=== PATIENT | female | born 1950 | race Two or more races ===

== ENCOUNTER → 2016-04-30 | Outpatient (CLI) | payer BC, MEDICARE, OTHER ==
[2016-04-30 08:54] LABS: ABSOLUTE EOSINOPHILS # (AUTO) 0.2 10^3/uL (0.0-0.6); ABSOLUTE LYMPHOCYTES (AUTO) 1.8 10^3/uL (0.5-4.7); ABSOLUTE MONOCYTES (AUTO) 0.7 10^3/uL (0.1-1.4); ABSOLUTE NEUT (AUTO) 5.2 10^3/uL (1.7-8.2); BASOPHILS % (AUTO) 0.6 % (0-2); HEMATOCRIT 41.2 % (36.0-47.0); HEMOGLOBIN 13.9 g/dL (12.0-15.5); HGB HCT DIFFERENCE 0.5; LYMPHOCYTES % (AUTO) 22.7 % (13-45); MEAN CORPUSCULAR HGB CONC 33.7 g/dL (32.0-36.0); MEAN CORPUSCULAR VOLUME 95 fl (80-97); MONOCYTES % (AUTO) 8.4 % (3-13); RED BLOOD COUNT 4.33 10^6/uL (3.72-5.28); RED CELL DISTRIBUTION WIDTH 14.4 % (11.5-14.0); SEGMENTED NEUTROPHILS % (AUTO) 66.3 % (42-78); WHITE BLOOD COUNT 7.8 10^3/uL (4.0-10.5)
[2016-04-30 09:23] LABS: ALANINE AMINOTRANSFERASE 44 U/L (9-52); ALBUMIN 4.9 g/dL (3.5-5.0); ALKALINE PHOSPHATASE 88 U/L (38-126); ANION GAP 11 (5-19); ASPARTATE AMINO TRANSFERASE 35 U/L (14-36); BILIRUBIN,TOTAL 0.6 mg/dL (0.2-1.3); BLOOD UREA NITROGEN 18 mg/dL (7-20); CALCIUM 10.4 mg/dL (8.4-10.2); CARBON DIOXIDE 30 mmol/L (22-30); CHLORIDE 103 mmol/L (98-107); CHOLESTEROL 176.77 mg/dL (0-200); CREATININE RESULT 0.68 mg/dL (0.52-1.25); Direct HDL 64 mg/dL (>40); GLUCOSE 138 mg/dL (75-110); POTASSIUM 5.1 mmol/L (3.6-5.0); TOTAL PROTEIN 7.6 g/dL (6.3-8.2); TRIGLYCERIDES 140 mg/dL (<150)
[2016-04-30 09:34] LABS: DIRECT LDL 99 mg/dL (<100)
== END ==
LOC: OD 07:58
PROVIDERS: ATTEND Family Medicine
DX: E11.9 Type 2 diabetes mellitus without complications (principal); E78.5 Hyperlipidemia, unspecified; E55.9 Vitamin D deficiency, unspecified; Z79.82 Long term (current) use of aspirin; Z79.899 Other long term (current) drug therapy
CPT/HCPCS: 36415; 80048; 80061; 80076; 82306; 83036; 84443; 85025

== ENCOUNTER → 2016-10-30 | Outpatient (CLI) | payer BC, MEDICARE, OTHER ==
[2016-10-30 10:20] LABS: ALANINE AMINOTRANSFERASE 59 U/L (9-52); ALBUMIN 4.4 g/dL (3.5-5.0); ALKALINE PHOSPHATASE 89 U/L (38-126); ANION GAP 9 (5-19); ASPARTATE AMINO TRANSFERASE 45 U/L (14-36); BILIRUBIN,DIRECT 0.4 mg/dL (0.0-0.4); BILIRUBIN,TOTAL 0.5 mg/dL (0.2-1.3); BLOOD UREA NITROGEN 20 mg/dL (7-20); CALCIUM 9.7 mg/dL (8.4-10.2); CARBON DIOXIDE 28 mmol/L (22-30); CHLORIDE 105 mmol/L (98-107); CHOLESTEROL 145.72 mg/dL (0-200); CREATININE RESULT 0.72 mg/dL (0.52-1.25); Direct HDL 57 mg/dL (>40); GLUCOSE 135 mg/dL (75-110); POTASSIUM 5.4 mmol/L (3.6-5.0); SODIUM 142.3 mmol/L (137-145); TOTAL PROTEIN 7.4 g/dL (6.3-8.2); TRIGLYCERIDES 140 mg/dL (<150)
[2016-10-30 10:31] LABS: DIRECT LDL 67 mg/dL (<100)
[2016-10-31 11:39] LABS: CREATININE URINE 182.7 mg/dL (Not Estab.); MICROALBUMIN URINE 8.6 ug/mL (Not Estab.)
== END ==
LOC: OD 08:07
PROVIDERS: ATTEND Family Medicine
DX: E78.5 Hyperlipidemia, unspecified (principal); E11.9 Type 2 diabetes mellitus without complications; Z79.899 Other long term (current) drug therapy
CPT/HCPCS: 36415; 80053; 80061; 82043; 82570; 83036

== ENCOUNTER 2017-05-06 18:22 | Emergency (ER) | payer BC, MEDICARE, OTHER ==
--- NOTE | 2017-05-06 18:58 | ER Document Report ---
ED Medical Screen (RME) - General Chief Complaint: Abnormal Lab Results Stated Complaint: ABNORMAL LABS TRAVEL OUTSIDE OF THE [place] IN LAST 30 DAYS: No - HPI Notes: 05/06/17 18:52 Patient is a 67-year-old female who is referred to the ED by her PCM, Dr. Hardwick , complaining of nasal congestion/discharge, body ache, intermittent fever, dry nonproductive cough 2 days. Patient states that she had blood work performed by her PCM this morning and showed elevated LFTs. Patient does have a history of fatty liver, hypertension, hypercholesterolemia, and diabetes. Her PCM would like her to have fluids as well as a recheck of her labs. Patient states that she did have some abdominal pain on Friday, but that has since resolved. Patient states she is eating and drinking without any difficulties, but does have a decreased p.o. intake. She is urinating normally and having normal bowel movements. She denies any drug allergies. Patient states that she has soreness on her sides when she coughs only. Denies any headache, neck pain, sore throat, chest pain, palpitations, syncope, shortness of breath, wheeze, dyspnea, abdominal pain, nausea/vomiting/diarrhea, urinary retention, dysuria, hematuria, or rash. I have treated and performed a rapid initial assessment of this patient. A comprehensive ED assessment and evaluation of the patient, analysis of test results and completion of medical decision making process will be conducted by additional ED providers. PHYSICAL EXAMINATION: GENERAL: Well-appearing, well-nourished and in no acute distress. A&Ox4. Answers questions appropriately. LUNGS: Breath sounds clear to auscultation bilaterally and equal. No wheezes rales or rhonchi. HEART: pulse 116 approx, regular rhythm without murmurs, rubs, gallops. NEUROLOGICAL: Normal speech, normal gait. PSYCH: Normal mood, normal affect. - Related Data Allergies/Adverse Reactions: No Known Allergies Allergy (Verified 05/06/17 18:35) Past Medical History - Social History Chew tobacco use (# tins/day): No Frequency of alcohol use: None Drug Abuse: None Family history: Reviewed & Not Pertinent - Past Medical History Cardiac Medical History: Reports: Hx Hypercholesterolemia, Hx Hypertension Endocrine Medical History: Reports: Hx Diabetes Mellitus Type 2 Renal/ Medical History: Denies: Hx Peritoneal Dialysis Past Surgical History: Reports: Hx Cardiac Catheterization, Hx Cholecystectomy, Hx Orthopedic Surgery - right foot, hammer toe Physical Exam - Vital signs Vitals: Temp Pulse Resp BP Pulse Ox 98.6 F 116 H 20 157/90 H 97 05/06/17 18:30 05/06/17 18:30 05/06/17 18:30 05/06/17 18:30 05/06/17 18:30 Course - Vital Signs Vital signs: Temp Pulse Resp BP Pulse Ox 98.6 F 116 H 20 157/90 H 97 05/06/17 18:30 05/06/17 18:30 05/06/17 18:30 05/06/17 18:30 05/06/17 18:30
[2017-05-06 20:08] LABS: ABSOLUTE LYMPHOCYTES (AUTO) 0.5 10^3/uL (0.5-4.7); ABSOLUTE MONOCYTES (AUTO) 0.6 10^3/uL (0.1-1.4); ABSOLUTE NEUT (AUTO) 5.9 10^3/uL (1.7-8.2); BASOPHILS % (AUTO) 0.5 % (0-2); EOSINOPHILS % (AUTO) 0.7 % (0-6); HEMATOCRIT 37.8 % (36.0-47.0); HEMOGLOBIN 12.7 g/dL (12.0-15.5); MEAN CORPUSCULAR HEMOGLOBIN 31.4 pg (27.0-33.4); MEAN CORPUSCULAR HGB CONC 33.5 g/dL (32.0-36.0); MEAN CORPUSCULAR VOLUME 94 fl (80-97); MONOCYTES % (AUTO) 8.9 % (3-13); PLATELET COUNT 307 10^3/uL (150-450); RED BLOOD COUNT 4.03 10^6/uL (3.72-5.28); RED CELL DISTRIBUTION WIDTH 13.6 % (11.5-14.0); SEGMENTED NEUTROPHILS % (AUTO) 82.9 % (42-78); TOTAL CELLS COUNTED % (AUTO) 100 %; WHITE BLOOD COUNT 7.1 10^3/uL (4.0-10.5)
[2017-05-06 20:19] LABS: APPEARANCE,URINE SLIGHTLY-CLOUDY; BILIRUBIN,URINE NEGATIVE (NEGATIVE); COLOR,URINE YELLOW; GLUCOSE, URINE NEGATIVE (NEGATIVE); KETONES,URINE TRACE mg/dL (NEGATIVE); LEUKOCYTE ESTERASE,URINE SMALL (NEGATIVE); NITRITE,URINE NEGATIVE (NEGATIVE); PROTEIN,URINE NEGATIVE (NEGATIVE); URINE SPECIFIC GRAVITY 1.018; UROBILINOGEN,URINE NEGATIVE mg/dL (<2.0)
--- NOTE | 2017-05-06 20:35 | ER Document Report ---
ED General - General Chief Complaint: Abnormal Lab Results Stated Complaint: ABNORMAL LABS Time Seen by Provider: 05/06/17 18:59 Notes: The patient is a 67-year-old female, past medical history of fatty liver disease , presents from her primary care physician's office after her LFTs were found to be elevated. Patient denies abdominal pain, fevers, nausea, vomiting, chest pain, shortness of breath, urinary symptoms, recent travel, new medications, statin use, diarrhea or constipation. TRAVEL OUTSIDE OF THE [place] IN LAST 30 DAYS: No - Related Data Allergies/Adverse Reactions: No Known Allergies Allergy (Verified 05/06/17 18:35) Past Medical History - General Information source: Patient - Social History Smoking Status: Never Smoker Chew tobacco use (# tins/day): No Frequency of alcohol use: None Drug Abuse: None Family History: CVA - Father 80 years old Patient has suicidal ideation: No Patient has homicidal ideation: No - Past Medical History Cardiac Medical History: Reports: Hx Hypercholesterolemia, Hx Hypertension Endocrine Medical History: Reports: Hx Diabetes Mellitus Type 2 Renal/ Medical History: Denies: Hx Peritoneal Dialysis Past Surgical History: Reports: Hx Cardiac Catheterization, Hx Cholecystectomy, Hx Orthopedic Surgery - right foot, hammer toe - Immunizations Hx Pneumococcal Vaccination: 03/24/07 Review of Systems - Review of Systems Notes: REVIEW OF SYSTEMS: CONSTITUTIONAL: -fevers, -chills EENT: -eye pain, -difficulty swallowing, -nasal congestion CARDIOVASCULAR: -chest pain, -syncope. RESPIRATORY: -cough, -SOB GASTROINTESTINAL: -abdominal pain, -nausea, -vomiting, -diarrhea GENITOURINARY: -dysuria, -hematuria MUSCULOSKELETAL: -back pain, -neck pain SKIN: -rash or skin lesions. HEMATOLOGIC: -easy bruising or bleeding. LYMPHATIC: -swollen, enlarged glands. NEUROLOGICAL: -altered mental status or loss of consciousness, -headache, - neurologic symptoms PSYCHIATRIC: -anxiety, -depression. ALL OTHER SYSTEMS REVIEWED AND NEGATIVE. Physical Exam - Vital signs Vitals: Temp Pulse Resp BP Pulse Ox 98.6 F 116 H 20 157/90 H 97 05/06/17 18:30 05/06/17 18:30 05/06/17 18:30 05/06/17 18:30 05/06/17 18:30 - Notes Notes: PHYSICAL EXAMINATION: GENERAL: Well-appearing, well-nourished and in no acute distress. HEAD: Atraumatic, normocephalic. EYES: Pupils equal round and reactive to light, extraocular movements intact, sclera anicteric, conjunctiva are normal. ENT: nares patent, oropharynx clear without exudates. Moist mucous membranes. NECK: Normal range of motion, supple without lymphadenopathy LUNGS: Breath sounds clear to auscultation bilaterally and equal. No wheezes rales or rhonchi. HEART: Tachycardia, regular rhythm. ABDOMEN: Soft, nontender, normoactive bowel sounds. No guarding, no rebound. No masses appreciated. EXTREMITIES: Normal range of motion, no pitting or edema. No cyanosis. NEUROLOGICAL: Cranial nerves grossly intact. Normal speech, normal gait. Normal sensory and motor exams. PSYCH: Normal mood, normal affect. SKIN: Warm, Dry, normal turgor, no rashes or lesions noted. Course - Re-evaluation Re-evalutation: Ultrasound obtained due to elevated LFTs, which shows evidence of multiple hepatic lesions with concern for metastatic cancer. CTA ordered due to tachycardia, but no evidence of PE or primary lung cancer. Unable to obtain CT abdomen pelvis for 24 hours due to contrast. Pt had a colonoscopy last year, mammogram in the past year and denies any vaginal bleeding or weight loss. Patient appears well and is in no distress. She remains mildly tachycardic and suspect that it is from her underlying malignancy. No signs of infection or PEs. Instructed her that she must follow-up with the oncologist this week for further evaluation and treatment. Given very strict return precautions and she understands. 05/07/17 00:[address] Curtis and he said to have patient call his office in the morning to be seen this week. - Vital Signs Vital signs: Temp Pulse Resp BP Pulse Ox 98.6 F 116 H 20 157/90 H 97 05/06/17 18:30 05/06/17 18:30 05/06/17 18:30 05/06/17 18:30 05/06/17 18:30 - Laboratory Result Diagrams: 05/06/17 19:50 05/06/17 20:25 Laboratory results interpreted by me: 05/06/17 05/06/17 05/06/17 19:10 19:50 20:25 Seg Neutrophils % 82.9 H Lymphocytes % 7.0 L Sodium 136.2 L Chloride 97 L Carbon Dioxide 31 H Glucose 148 H AST 349 H ALT 154 H Alkaline Phosphatase 313 H Urine Ketones TRACE H Ur Leukocyte Esterase SMALL H Urine Ascorbic Acid 40 H - Diagnostic Test Radiology reviewed: Image reviewed, Reports reviewed Radiology results interpreted by me: KULWINDER US: Multiple masses in the liver most suspicious for metastatic disease. CTA Chest: 1. Numerous hepatic lesions consistent with clinical history of metastasis. 2. No acute cardiopulmonary findings. No pulmonary embolus. Discharge - Discharge Clinical Impression: Lesion of liver, Elevated LFTs Condition: Stable Disposition: HOME, SELF-CARE Additional Instructions: Your ultrasound shows evidence of multiple liver lesions with concern for metastatic cancer. At this time, it is unclear where your primary cancer is from. You must follow-up with the oncologist tomorrow for further evaluation and treatment. Return to the ER if you have any worsening symptoms or any other concerns. Forms: Elevated Blood Pressure Referrals: ARDEN BARRAZA MD [Primary Care Provider] - Follow up as needed WALE CURTIS MD [ACTIVE STAFF] - Follow up as needed
[2017-05-06] MEDS: NORMAL SALINE 1000 ML 1,000 ML IV PRN ×2 (20:36→23:59)
[2017-05-06 20:58] LABS: ALANINE AMINOTRANSFERASE 154 U/L (9-52); ALBUMIN 4.2 g/dL (3.5-5.0); ALKALINE PHOSPHATASE 313 U/L (38-126); ANION GAP 8 (5-19); ASPARTATE AMINO TRANSFERASE 349 U/L (14-36); BILIRUBIN,DIRECT 0.2 mg/dL (0.0-0.4); BILIRUBIN,TOTAL 0.3 mg/dL (0.2-1.3); BLOOD UREA NITROGEN 14 mg/dL (7-20); CALCIUM 9.4 mg/dL (8.4-10.2); CARBON DIOXIDE 31 mmol/L (22-30); CHLORIDE 97 mmol/L (98-107); GLUCOSE 148 mg/dL (75-110); SODIUM 136.2 mmol/L (137-145); TOTAL PROTEIN 6.3 g/dL (6.3-8.2)
--- NOTE | 2017-05-06 21:42 | RADIOLOGY REPORT (SQ) ---
EXAM DESCRIPTION: U/S ABDOMEN LIMITED W/O DOP COMPLETED DATE/TIME: 05/06/2017 9:30 pm REASON FOR STUDY: elevated LFTs COMPARISON: 2013 TECHNIQUE: Dynamic and static grayscale images acquired of the abdomen and recorded on PACS. Additio nal selected color Doppler and spectral images recorded. LIMITATIONS: None. FINDINGS: PANCREAS: Poorly seen LIVER: There are multiple heterogeneous masses throughout the liver. LIVER VASCULATURE: Normal directional flow of the main portal vein and hepatic veins. GALLBLADDER: Surgically absent ULTRASOUND-DETECTED DUPONT'S SIGN: Negative. INTRAHEPATIC DUCTS AND COMMON DUCT: Not dilated. INFERIOR VENA CAVA: Normal flow. AORTA: No aneurysm. RIGHT KIDNEY: Normal size. Normal echogenicity. No solid or suspicious masses. No hydronephrosis. No calcifications. PERITONEAL AND RIGHT PLEURAL SPACE: No ascites or effusions. OTHER: No other significant findings. IMPRESSION: Multiple masses in the liver most suspicious for metastatic disease. TECHNICAL DOCUMENTATION: JOB ID: [id number] [employer]- All Rights Reserved
--- NOTE | 2017-05-06 23:25 | RADIOLOGY REPORT (SQ) ---
EXAM DESCRIPTION: CTA CHEST CLINICAL HISTORY: 67 years Female, tachycardia, tachypnea, multiple mets in liver COMPARISON: CR, September 07, 2013. Ultrasound, same day. TECHNIQUE: 100 mL Isovue-370 IV contrast. Multiplanar reformat. This exam was performed according to our departmental dose-optimization program, which includes automated exposure control, adjustment of the mA and/or kV according to patient size and/or use of iterative reconstruction technique. FINDINGS: Innumerable and extensive hepatic lesions partially imaged including a 6.9 cm lesion of the right hepatic lobe may indicate metastasis or malignancy, consistent with concurrent ultrasound. No evidence of pulmonary embolus. No right ventricular strain. Inferior neck, axillae, mediastinum, lungs, airway, lymphatics, heart, vasculature, upper abdomen, and musculoskeleton appear otherwise unremarkable. IMPRESSION: 1. Numerous hepatic lesions consistent with clinical history of metastasis. 2. No acute cardiopulmonary findings. No pulmonary embolus.
[2017-05-07 00:22] VITALS: BP 159/83
== END 2017-05-07 00:34 | disposition home or self-care (01) ==
LOC: ER 18:22
DX: K76.9 Liver disease, unspecified (principal); R00.0 Tachycardia, unspecified; I10 Essential (primary) hypertension; E11.9 Type 2 diabetes mellitus without complications
CPT/HCPCS: 99284; 96360; 96361; 36415; 85025; 80053; 81001; 76705; 71275; J7030

== ENCOUNTER → 2017-05-06 | Outpatient (CLI) | payer BC, MEDICARE, OTHER ==
[2017-05-06 09:27] LABS: ABSOLUTE EOSINOPHILS # (AUTO) 0.1 10^3/uL (0.0-0.6); ABSOLUTE LYMPHOCYTES (AUTO) 0.7 10^3/uL (0.5-4.7); ABSOLUTE MONOCYTES (AUTO) 0.5 10^3/uL (0.1-1.4); ABSOLUTE NEUT (AUTO) 5.8 10^3/uL (1.7-8.2); BASOPHILS % (AUTO) 0.4 % (0-2); EOSINOPHILS % (AUTO) 1.4 % (0-6); HEMATOCRIT 36.3 % (36.0-47.0); HEMOGLOBIN 12.1 g/dL (12.0-15.5); LYMPHOCYTES % (AUTO) 9.8 % (13-45); MEAN CORPUSCULAR HEMOGLOBIN 31.2 pg (27.0-33.4); MEAN CORPUSCULAR HGB CONC 33.3 g/dL (32.0-36.0); MEAN CORPUSCULAR VOLUME 94 fl (80-97); MONOCYTES % (AUTO) 7.2 % (3-13); PLATELET COUNT 317 10^3/uL (150-450); RED BLOOD COUNT 3.88 10^6/uL (3.72-5.28); RED CELL DISTRIBUTION WIDTH 13.7 % (11.5-14.0); SEGMENTED NEUTROPHILS % (AUTO) 81.2 % (42-78); TOTAL CELLS COUNTED % (AUTO) 100 %; WHITE BLOOD COUNT 7.1 10^3/uL (4.0-10.5)
[2017-05-06 10:02] LABS: ALANINE AMINOTRANSFERASE 158 U/L (9-52); ALBUMIN 4.3 g/dL (3.5-5.0); ALKALINE PHOSPHATASE 335 U/L (38-126); ANION GAP 12 (5-19); ASPARTATE AMINO TRANSFERASE 355 U/L (14-36); BILIRUBIN,DIRECT 0.2 mg/dL (0.0-0.4); BILIRUBIN,TOTAL 0.3 mg/dL (0.2-1.3); BLOOD UREA NITROGEN 15 mg/dL (7-20); CALCIUM 9.7 mg/dL (8.4-10.2); CARBON DIOXIDE 29 mmol/L (22-30); CHLORIDE 99 mmol/L (98-107); CHOLESTEROL 117.63 mg/dL (0-200); GLUCOSE 179 mg/dL (75-110); POTASSIUM 4.5 mmol/L (3.6-5.0); SODIUM 140.1 mmol/L (137-145); TOTAL PROTEIN 6.6 g/dL (6.3-8.2); TRIGLYCERIDES 83 mg/dL (<150)
[2017-05-06 10:13] LABS: DIRECT LDL 51 mg/dL (<100)
[2017-05-07 10:38] LABS: CREATININE URINE 103.8 mg/dL (Not Estab.); MICROALBUMIN URINE 28.5 ug/mL (Not Estab.)
== END ==
LOC: OD 08:19
PROVIDERS: ATTEND Family Medicine
DX: E55.9 Vitamin D deficiency, unspecified (principal); E11.9 Type 2 diabetes mellitus without complications; E78.5 Hyperlipidemia, unspecified; Z79.899 Other long term (current) drug therapy
CPT/HCPCS: 36415; 80053; 80061; 82043; 82306; 82570; 83036; 84443; 85025

== ENCOUNTER → 2017-05-12 | Outpatient (CLI) | payer BC, MEDICARE, OTHER ==
--- NOTE | 2017-05-12 19:21 | RADIOLOGY REPORT (SQ) ---
EXAM DESCRIPTION: CT CHEST WITH; CT ABD/PELVIS WITH IV ORAL COMPLETED DATE/TIME: 05/12/2017 3:50 pm REASON FOR STUDY: LIVER LESION, ABDOMINAL PAIN, CHEST PAIN R93.2 ABNORMAL FINDINGS ON DX IMAGING OF LIVER AND BILIARY T COMPARISON: CT angio chest 05/06/2017 CONTRAST TYPE AND DOSE: contrast/concentration: Isovue 370.00 mg/ml; Total Contrast Delivered: 79.0 ml; Total Saline Delivered: 68.0 ml RENAL FUNCTION: Creatinine 0.72 TECHNIQUE: CT scan of the chest performed using helical scanning technique with dynamic intravenous contrast injection. Images reviewed with lung, soft tissue and bone windows. Reconstructed coronal a nd sagittal MPR images reviewed. All images stored on PACS. CT scan of the abdomen and pelvis performed with intravenous and with oral contrastusing helical scan little technique with dynamic intravenous contrast injection. Images reviewed with lung, soft tissue a nd bone windows. Reconstructed coronal and sagittal MPR images reviewed. Delayed images for evaluat ion of the urinary system also acquired and evaluated. All images stored on PACS. All CT scanners at this facility use dose modulation, iterative reconstruction, and/or weight based d osing when appropriate to reduce radiation dose to as low as reasonably achievable (ALARA). [facility]: Dose Right [facility]: CareDose [facility]: Dose Right [facility]: Teradose 4D [facility]: [employer] RADIATION DOSE: CT Rad equipment meets quality standard of care and radiation dose reduction techniq ues were employed. CTDIvol: 6.4 - 7.9 mGy. DLP: 1046 mGy-cm. . LIMITATIONS: None. FINDINGS: CHEST: LUNGS AND PLEURA: No opacities, nodules, masses. No pneumothorax. No effusions. HILAR AND MEDIASTINAL STRUCTURES: No identified masses or abnormal nodes. HEART AND VASCULAR STRUCTURES: No aneurysm or dissection. No central pulmonary emboli. No pericardi al effusion. HARDWARE: None. THYROID AND OTHER SOFT TISSUES: No masses. No adenopathy. BONES: No significant finding. OTHER: No other significant finding. ABDOMEN AND PELVIS: LIVER: Too numerous to count metastatic lesions throughout the liver. Mild hepatomegaly. No biliary ductal dilatation. No oral vein or hepatic vein thrombosis SPLEEN: Normal size. No focal lesions. PANCREAS: 3.8 x 3.8 cm mass in the pancreatic body with atrophy of the pancreatic tail. GALLBLADDER: Surgically absent. ADRENAL GLANDS: No significant masses or asymmetry. RIGHT KIDNEY AND URETER: No solid masses. No significant calcification. No hydronephrosis or hydroure ter. LEFT KIDNEY AND URETER: No solid masses. No significant calcification. No hydronephrosis or hydrouret er. AORTA AND VESSELS: No aneurysm. No dissection. Renal arteries, SMA, celiac without stenosis. RETROPERITONEUM: No retroperitoneal adenopathy, hemorrhage or masses. BOWEL AND PERITONEAL CAVITY: No masses or inflammatory changes. No free fluid or peritoneal masses. APPENDIX: Not identified. No right lower quadrant inflammatory change ABDOMINAL WALL: No masses. No hernias. PELVIS: No mass or free fluid. Normal bladder. Normal size female pelvic organs BONES: No bony metastatic disease. Degenerative disc changes sat L4-5. OTHER: No other significant finding. IMPRESSION: 3.8 x 3.8 cm pancreatic mass with liver metastatic lesions. Post cholecystectomy. Unremarkable CT chest. TECHNICAL DOCUMENTATION: JOB ID: [id number] Quality ID # [id number]: Final reports with documentation of one or more dose reduction techniques (e.g., Au tomated exposure control, adjustment of the mA and/or kV according to patient size, use of iterative reconstruction technique) 2010 [employer]- All Rights Reserved
== END ==
LOC: RAD 14:47
PROVIDERS: ATTEND Internal Medicine Hematology & Oncology
DX: R93.2 Abnormal findings on diagnostic imaging of liver and biliary tract (principal); R10.9 Unspecified abdominal pain; R07.9 Chest pain, unspecified
CPT/HCPCS: 71260; 74177

== ENCOUNTER 2017-06-11 08:26 | Day surgery (SDC) | payer BC, MEDICARE, OTHER ==
[2017-06-09 12:06] LABS: HEMATOCRIT 30.6 % (36.0-47.0); HEMOGLOBIN 10.1 g/dL (12.0-15.5); MEAN CORPUSCULAR HEMOGLOBIN 30.5 pg (27.0-33.4); MEAN CORPUSCULAR VOLUME 92 fl (80-97); PLATELET COUNT 437 10^3/uL (150-450); RED BLOOD COUNT 3.32 10^6/uL (3.72-5.28); RED CELL DISTRIBUTION WIDTH 14.6 % (11.5-14.0)
[2017-06-09 12:34] LABS: ANION GAP 11 (5-19); BLOOD UREA NITROGEN 14 mg/dL (7-20); CALCIUM 9.4 mg/dL (8.4-10.2); CARBON DIOXIDE 29 mmol/L (22-30); CHLORIDE 93 mmol/L (98-107); GLUCOSE 96 mg/dL (75-110); SODIUM 132.5 mmol/L (137-145)
--- NOTE | 2017-06-09 23:58 | EKG REPORT ---
SEVERITY:- ABNORMAL ECG - SINUS RHYTHM LEFT VENTRICULAR HYPERTROPHY : Confirmed by: Say Beard 09-Jun-2017 23:57:24
[~2017-06-11 08:26] MED LIST: ACETAMINOPHEN 325 MG TABLET PO PRN; CEFAZOLIN 1 GM/D5W RTU 1 GM/50 ML RTUPB IV PRN; LACTATED RINGERS 1000 ML IV PRN; LIDOCAINE 0.5% INJ-PF (5 MG/ML) 50 ML SDV SUBCUT PRN
[2017-06-11] MEDS ORDERED: LIDOCAINE 1%/EPINEPHRINE INJ 20 ML VIAL ONE (08:50)
[2017-06-11] MEDS ORDERED: PROPOFOL INJ 200 MG/20 ML VIAL IV ONE (09:44)
[2017-06-11] MEDS ORDERED: FENTANYL CITRATE INJ/PF 100 MCG/2 ML AMPUL ONE (09:44)
[2017-06-11] MEDS ORDERED: ACETAMINOPHEN 100 ML IV ONE (09:44)
[2017-06-11] MEDS ORDERED: KETAMINE HCL INJ 500 MG/10 ML VIAL ONE (09:44)
[2017-06-11] MEDS ORDERED: MIDAZOLAM 2 MG/2 ML INJ ONE (09:44)
[2017-06-11] MEDS ORDERED: PROMETHAZINE HCL INJ 25 MG/1 ML VIAL IV PRN ×2 (10:13)
[2017-06-11] MEDS ORDERED: ONDANSETRON HCL INJ/PF 4 MG/2 ML SDV IV PRN ×2 (10:13→10:55)
[2017-06-11] MEDS ORDERED: MEPERIDINE HCL/PF INJ 25 MG/1 ML DISP.SYRIN IV PRN (10:13)
[2017-06-11] MEDS ORDERED: DIPHENHYDRAMINE HCL 50 MG/ML VIAL IV PRN (10:13)
[2017-06-11] MEDS ORDERED: FENTANYL CITRATE INJ/PF 100 MCG/2 ML AMPUL IV PRN ×3 (10:13)
[2017-06-11] MEDS ORDERED: OXYCODONE-ACETAMINOPHEN 5-325 MG TABLET PO PRN (10:55)
--- NOTE | 2017-06-11 10:55 | Discharge Summary ---
Discharge Summary (SDC) - Discharge Final Diagnosis: Pancreatic cancer Date of Surgery: 06/11/17 Discharge Date: 06/11/17 Condition: Stable Treatment or Instructions: Wound Care: You may get incisions wet in 48 hours. Leave steri strips intact until they fall away on their own. Do not scrub area. Pat dry and cover if needed. Pain Management: Toradol 10 mg one pill by mouth every six hours as needed for pain. Follow Up: You may follow up with [facility] in 7-10 days. Call clinic sooner with questions/concerns or if you experience unusual bleeding, swelling of incision site/neck, difficult breathing, foul-smelling drainage. [facility]: [phone] Prescriptions: Ketorolac Tromethamine [Toradol 10 mg Tablet] 10 mg PO Q6HP PRN #20 tablet PRN Reason: Referrals: ARDEN BARRAZA MD [Primary Care Provider] - Discharge Diet: As Tolerated Discharge Activity: Activity As Tolerated Report the Following to Your Physician Immediately: Fever over 101 Degrees, Unusual Bleeding, Redness
--- NOTE | 2017-06-11 11:01 | Operative Report ---
Operative Report DATE OF SURGERY: 06/11/17 PREOPERATIVE DIAGNOSIS: Metastatic pancreatic carcinoma POSTOPERATIVE DIAGNOSIS: Same OPERATION: 1. Focused ultrasound of the right neck. 2. Ultrasound directed insertion of single lumen right internal jugular vein portacatheter. 3. Revision of intraoperative fluoroscopy SURGEON: KINSEY VENTURA 1ST HUMAN RESOURCE ADVISOR: BONITA MOISE ANESTHESIA: LMAC TISSUE REMOVED OR ALTERED: None COMPLICATIONS: None ESTIMATED BLOOD LOSS: Scant INTRAOPERATIVE FINDINGS: See below PROCEDURE: Patient was taken to the main operating room where LMAC anesthesia was induced. Arms were tucked and neck externally rotated to the left side. The right chest and neck were prepped and draped sterile fashion. Surgical plan surgical timeout were conducted. Using real-time ultrasonography as a guide, the right neck was anesthetized with 1% plain lidocaine. A ludin was made in skin with 11 blade, micro wire and needle threaded into the right internal jugular vein. Suitable site for placement of port was chosen in the right subclavian position. Skin was anesthetized with lidocaine, 3-1/2 cm incision made with a # 10 blade, and a subcutaneous pocket developed large enough to accommodate a single-chamber Lronae-l-Zsps catheter. The catheter was then trimmed to the appropriate length, tunneled between the 2 incisions, attached to the port with the plastic ring and the port tucked into the pocket. Under fluoroscopic guidance, the micro wire was switched over to a conventional 0.030 inch guidewire using the introducer sheath. Then under fluoroscopic guidance, the 9 Bahamian dilator introducer sheath were threaded over the wire, wire and dilator removed leaving the catheter in good position. Trip away sheath was removed uneventfully. Kinking of the catheter at the level of the neck was relieved with hemostat. There was excellent aspiration and flush through the port with heparinized saline. There is no evidence of ectopy. There was no significant bleeding. Wounds closed with 3-0 Vicryl, benzoin and Steri-Strips. Patient tolerated procedure well, taken to recovery room in stable condition. The physician business services assistant, Ms. Conklin, provided assistance during this case by: Assist retracting tissue, instillation of local anesthesia and closure of skin incisions.
--- NOTE | 2017-06-11 13:08 | RADIOLOGY REPORT (SQ) ---
EXAM DESCRIPTION: FLUORO/CV PLACEMENT COMPLETED DATE/TIME: 06/11/2017 11:01 am REASON FOR STUDY: PORTACATH PLCMT RT SIDE ASST WITH FLUORO IN OR C25.9 MALIGNANT NEOPLASM OF PANCRE , UNSPECIFIED R93.3 ABNORMAL FINDINGS ON DX IMAGING OF PRT DIGESTIVE TRACT R74.0 NONSPEC ELEV OF LEVELS OF TRANSAMNS LACTIC ACID DEHY COMPARISON: None. FLUOROSCOPY TIME: 0.1 minute 4 images saved to PACS. TECHNIQUE: Intra-operative images acquired during surgical procedure to evaluate progress. NUMBER OF IMAGES: 4 images LIMITATIONS: None. FINDINGS: Fluoroscopic images were obtained during insertion of a Port-A-Cath. Port-A-Cath is ident ified with its tip at the level of the superior vena cava. Please refer to the surgeon's operative r eport for additional information. IMPRESSION: IMAGE(S) OBTAINED DURING PROCEDURE. COMMENT: Quality ID [id number]: Final reports for procedures using fluoroscopy that document radiation exp osure indices, or exposure time and number of fluorographic images (if radiation exposure indices are not available) Please consult full operative report of the attending physician for description of the procedure. TECHNICAL DOCUMENTATION: JOB ID: [id number] [employer]- All Rights Reserved Reading location - IP/workstation name: [email or web address]
[2017-06-11 13:18] VITALS: BP 105/68
[2017-06-11] MEDS ORDERED: DEXAMETHASONE SOD PHOSPHATE INJ 4 MG/1 ML VIAL ONE (15:46)
[2017-06-11] MEDS ORDERED: LIDOCAINE 2% INJ-PF (20 MG/ML) 2 ML AMPUL ONE (15:46)
[2017-06-11] MEDS ORDERED: GLYCOPYRROLATE INJ 0.4 MG/2 ML VIAL ONE (15:46)
[2017-06-11] MEDS ORDERED: METOCLOPRAMIDE HCL INJ/PF 10 MG/2 ML SDV ONE (15:46)
[2017-06-11] MEDS ORDERED: PHENYLEPHRINE HCL INJ/PF 10 MG/1 ML SDV ONE (15:46)
[2017-06-11] MEDS ORDERED: ONDANSETRON HCL INJ/PF 4 MG/2 ML SDV ONE (15:46)
== END 2017-06-11 12:40 | disposition home or self-care (01) ==
LOC: OROUT 08:26
PROVIDERS: ATTEND Surgery
DX: C25.9 Malignant neoplasm of pancreas, unspecified (principal); R93.3 Abnormal findings on diagnostic imaging of other parts of digestive tract; R74.0 Nonspecific elevation of levels of transaminase and lactic acid dehydrogenase [LDH]; I20.8 Other forms of angina pectoris; I10 Essential (primary) hypertension; E11.9 Type 2 diabetes mellitus without complications; Z79.899 Other long term (current) drug therapy; Z79.82 Long term (current) use of aspirin; Z79.84 Long term (current) use of oral hypoglycemic drugs; Z79.891 Long term (current) use of opiate analgesic; M19.90 Unspecified osteoarthritis, unspecified site
CPT/HCPCS: 36561; 93005; 36415; 82962; 85027; 80048; 77001; 93010; C1752; C1788; J2250; J0690; J1100; J3010; J3490 ×3; J2765; J2370; J2405; J2704; J1642; J0131; 532

== ENCOUNTER 2017-07-27 10:16 | Inpatient (IN) | payer BC, MEDICARE, OTHER ==
[2017-07-27] MEDS ORDERED: MECLIZINE HCL 25 MG TABLET PO ONE (10:39)
--- NOTE | 2017-07-27 10:41 | ER Document Report ---
ED Medical Screen (RME) - General Chief Complaint: Abdominal Pain Stated Complaint: ABDOMINAL PAIN Time Seen by Provider: 07/27/17 10:39 Notes: 67-year-old female patient recently diagnosed with pancreatic cancer. Had her third chemo treatment on Friday. She reports she has mid abdominal pain but it is pretty much unchanged all week. Yesterday she had onset of dizziness, she notes that she gets very dizzy when she goes from laying down to sitting up or standing. She is complaining of being very thirsty and wants some water to drink, she has not been vomiting. She will be given a dose of Antivert now for her vertigo symptoms. I have greeted and performed a rapid initial assessment of this patient. A comprehensive ED assessment and evaluation of the patient, analysis of test results and completion of the medical decision making process will be conducted by additional ED providers. TRAVEL OUTSIDE OF THE [place] IN LAST 30 DAYS: No - Related Data Allergies/Adverse Reactions: No Known Allergies Allergy (Verified 07/27/17 10:36) Past Medical History - Social History Chew tobacco use (# tins/day): No Frequency of alcohol use: None Drug Abuse: None Family history: Reviewed & Not Pertinent - Past Medical History Cardiac Medical History: Reports: Hx Hypercholesterolemia, Hx Hypertension Denies: Hx Coronary Artery Disease, Hx Heart Attack Pulmonary Medical History: Denies: Hx Asthma, Hx Bronchitis, Hx COPD, Hx Pneumonia Neurological Medical History: Denies: Hx Cerebrovascular Accident, Hx Seizures Endocrine Medical History: Reports: Hx Diabetes Mellitus Type 2 Renal/ Medical History: Denies: Hx Peritoneal Dialysis Musculoskeltal Medical History: Reports Hx Arthritis - GENERALIZED Past Surgical History: Reports: Hx Cardiac Catheterization, Hx Cholecystectomy, Hx Orthopedic Surgery - right foot, hammer toe - Immunizations Hx Diphtheria, Pertussis, Tetanus Vaccination: Yes History of Influenza Vaccine for 12/2016 - 05/2017 Season: Yes Influenza Administration Date for 12/2016 - 05/2017 Season: 12/22/16 Physical Exam - Vital signs Vitals: Temp Pulse Resp BP Pulse Ox 98.6 F 115 H 20 131/64 H 96 07/27/17 10:22 07/27/17 10:22 07/27/17 10:22 07/27/17 10:22 07/27/17 10:22 Course - Vital Signs Vital signs: Temp Pulse Resp BP Pulse Ox 98.6 F 115 H 20 131/64 H 96 07/27/17 10:22 07/27/17 10:22 07/27/17 10:22 07/27/17 10:22 07/27/17 10:22
[2017-07-27] MEDS ORDERED: RINGERS SOLUTION,LACTATED 1,000 ML IV ONE (11:22)
--- NOTE | 2017-07-27 11:28 | ER Document Report ---
ED General - General Chief Complaint: Abdominal Pain Stated Complaint: ABDOMINAL PAIN Time Seen by Provider: 07/27/17 10:39 Notes: Patient has 2 complaints, abdominal pain and vertigo. Patient was diagnosed with pancreatic cancer in April of this year, and it has spread into her liver and occupies about 80% of the liver, according to her . She has been receiving chemotherapy approximately every couple of weeks, most recent dose being 2 days ago. Her abdominal pain is diffuse and has remained about the same all this week. She is on morphine ER 30, and morphine IR 15. She has had vomiting yesterday a few times. Has not had any diarrhea. Eating poorly and drinking poorly. Had some nosebleed today. Has had swelling of both lower legs for weeks. Is able to ambulate with a cane. Patient also is complaining of vertigo. She has had episodes of vertigo in the past. This episode been going on since yesterday. It goes and comes. Feels like the room is spinning. She had some headache yesterday but none today. Has not passed out and has no neurologic deficits. has been recording patient's events and says that she had a low-grade fever the last couple of days. No UTI symptoms. TRAVEL OUTSIDE OF THE [place] IN LAST 30 DAYS: No - Related Data Allergies/Adverse Reactions: No Known Allergies Allergy (Verified 07/27/17 10:36) Past Medical History - Social History Smoking Status: Never Smoker Chew tobacco use (# tins/day): No Frequency of alcohol use: None Drug Abuse: None Family History: Reviewed & Not Pertinent, CVA - Father 80 years old Patient has suicidal ideation: No Patient has homicidal ideation: No - Past Medical History Cardiac Medical History: Reports: Hx Hypercholesterolemia, Hx Hypertension Endocrine Medical History: Reports: Hx Diabetes Mellitus Type 2 Malignancy Medical History: Reports: Hx Pancreatic Cancer - See HPI. Musculoskeltal Medical History: Reports Hx Arthritis - GENERALIZED Past Surgical History: Reports: Hx Cardiac Catheterization, Hx Cholecystectomy, Hx Orthopedic Surgery - right foot, hammer toe - Immunizations Hx Diphtheria, Pertussis, Tetanus Vaccination: Yes Hx Pneumococcal Vaccination: 01/22/17 Review of Systems - Review of Systems Notes: REVIEW OF SYSTEMS: CONSTITUTIONAL : Has had low-grade fevers for the past couple of days. Poor appetite and little intake.. EENT: Denies eye, ear, nose or mouth or throat pain or other symptoms. CARDIOVASCULAR: Denies chest pain. RESPIRATORY: Denies cough, chest congestion, or shortness of breath. GASTROINTESTINAL: See HPI. GENITOURINARY: Denies difficulty or painful urinating, urinary frequency, blood in urine. Decreased urine output. MUSCULOSKELETAL: Denies back or neck pain. Denies joint pain or swelling. SKIN: Denies rash or skin lesions. NEUROLOGICAL: See HPI. Denies LOC or altered mental status. Denies headache at this time, but did have a slight headache yesterday. Denies sensory loss or motor deficits. ALL OTHER SYSTEMS REVIEWED AND NEGATIVE. Physical Exam - Vital signs Vitals: Temp Pulse Resp BP Pulse Ox 98.6 F 115 H 20 131/64 H 96 07/27/17 10:22 07/27/17 10:22 07/27/17 10:22 07/27/17 10:22 07/27/17 10:22 Interpretation: Tachycardic - Mild - Notes Notes: PHYSICAL EXAMINATION: GENERAL: in no acute distress. Vital signs all essentially normal except for her heart rate of 115 in triage. She was given Antivert in triage. HEAD: Atraumatic, normocephalic. EYES: Pupils equal round and reactive to light, extraocular movements intact. ENT: oropharynx clear without exudates. Dry mucous membranes. NECK: Normal range of motion, supple. LUNGS: Breath sounds clear and equal bilaterally. HEART: Regular rate and rhythm without murmurs. ABDOMEN: Soft, mild diffuse tenderNESS. No guarding or rebound. No masses. BACK: No tenderness throughout entire back. EXTREMITIES: Normal range of motion without pain. +2-+3 pretibial pitting edema bilaterally. NEUROLOGICAL: Normal speech, normal gait with cane and assistance. Normal sensory, motor, and reflex exams. Awake, alert, and oriented x3. PSYCH: Normal mood, normal affect. Appears depressed SKIN: Warm, dry, no rashes. Course - Re-evaluation Re-evalutation: 07/27/17 14:40 Patient's hemoglobin is 7.8, runs around 8 over the last several weeks and this is not an unusual number for her. Rectal exam guaiac negative. Patient's heart rate 110 220 during my rectal examination. Chest x-ray shows a new right pleural effusion. Spoke with hospitalist who will admit the patient. - Vital Signs Vital signs: Temp Pulse Resp BP Pulse Ox 98.6 F 115 H 20 128/70 H 95 07/27/17 10:22 07/27/17 10:22 07/27/17 13:48 07/27/17 13:49 07/27/17 13:48 - Laboratory Result Diagrams: 07/27/17 12:10 07/27/17 12:10 Laboratory results interpreted by me: 07/27/17 07/27/17 07/27/17 11:35 12:10 12:10 WBC 11.4 H RBC 2.66 L Hgb 7.8 L Hct 23.4 L RDW 18.0 H Seg Neutrophils % 91.7 H Lymphocytes % 7.3 L Monocytes % 0.7 L Absolute Neutrophils 10.5 H Sodium 130.9 L Chloride 93 L Creatinine 0.41 L Glucose 122 H Calcium 8.0 L Total Bilirubin 1.5 H Direct Bilirubin 0.8 H AST 1318 H ALT 63 H Alkaline Phosphatase 587 H NT-Pro-B Natriuret Pep Total Protein 5.1 L Albumin 2.5 L Urine Protein 30 H Urine Blood SMALL H Urine Urobilinogen 2.0 H Ur Leukocyte Esterase TRACE H 07/27/17 12:10 WBC RBC Hgb Hct RDW Seg Neutrophils % Lymphocytes % Monocytes % Absolute Neutrophils Sodium Chloride Creatinine Glucose Calcium Total Bilirubin Direct Bilirubin AST ALT Alkaline Phosphatase NT-Pro-B Natriuret Pep 3190 H Total Protein Albumin Urine Protein Urine Blood Urine Urobilinogen Ur Leukocyte Esterase - Diagnostic Test Radiology results interpreted by me: 07/27/17 14:41 Chest x-ray shows a right pleural effusion. This was not present on the last imaging study, a CT scan of the patient's chest, and April of this year. - EKG Interpretation by Sc EKG shows normal: Sinus rhythm Rate: Tachycardia Rhythm: NSR Discharge - Discharge Clinical Impression: Pancreatic cancer metastasized to liver, Anemia, Tachycardia, Pleural effusion , right, Hyponatremia Condition: Stable Disposition: ADMITTED INPATIENT Admitting Provider: Hospitalist Unit Admitted: Telemetry
[2017-07-27 12:04] LABS: APPEARANCE,URINE SLIGHTLY-CLOUDY; BILIRUBIN,URINE NEGATIVE (NEGATIVE); COLOR,URINE AMBER; GLUCOSE, URINE NEGATIVE (NEGATIVE); KETONES,URINE NEGATIVE (NEGATIVE); LEUKOCYTE ESTERASE,URINE TRACE (NEGATIVE); NITRITE,URINE NEGATIVE (NEGATIVE); PROTEIN,URINE 30 mg/dL (NEGATIVE); URINE SPECIFIC GRAVITY 1.016
[2017-07-27 12:38] LABS: ABSOLUTE LYMPHOCYTES (AUTO) 0.8 10^3/uL (0.5-4.7); ABSOLUTE MONOCYTES (AUTO) 0.1 10^3/uL (0.1-1.4); ABSOLUTE NEUT (AUTO) 10.5 10^3/uL (1.7-8.2); BASOPHILS % (AUTO) 0.3 % (0-2); HEMATOCRIT 23.4 % (36.0-47.0); LYMPHOCYTES % (AUTO) 7.3 % (13-45); MEAN CORPUSCULAR HEMOGLOBIN 29.4 pg (27.0-33.4); MEAN CORPUSCULAR HGB CONC 33.4 g/dL (32.0-36.0); MEAN CORPUSCULAR VOLUME 88 fl (80-97); MONOCYTES % (AUTO) 0.7 % (3-13); PLATELET COUNT 323 10^3/uL (150-450); RED BLOOD COUNT 2.66 10^6/uL (3.72-5.28); SEGMENTED NEUTROPHILS % (AUTO) 91.7 % (42-78); TOTAL CELLS COUNTED % (AUTO) 100 %; WHITE BLOOD COUNT 11.4 10^3/uL (4.0-10.5)
[2017-07-27 12:49] LABS: HEMOGLOBIN 7.8 g/dL (12.0-15.5)
[2017-07-27 12:56] LABS: ALANINE AMINOTRANSFERASE 63 U/L (9-52); ALBUMIN 2.5 g/dL (3.5-5.0); ALKALINE PHOSPHATASE 587 U/L (38-126); ANION GAP 9 (5-19); BILIRUBIN,DIRECT 0.8 mg/dL (0.0-0.4); BILIRUBIN,TOTAL 1.5 mg/dL (0.2-1.3); BLOOD UREA NITROGEN 13 mg/dL (7-20); CARBON DIOXIDE 29 mmol/L (22-30); CHLORIDE 93 mmol/L (98-107); GLUCOSE 122 mg/dL (75-110); LIPASE 46.2 U/L (23-300); POTASSIUM 4.1 mmol/L (3.6-5.0); SODIUM 130.9 mmol/L (137-145); TOTAL PROTEIN 5.1 g/dL (6.3-8.2)
[2017-07-27 13:04] LABS: ASPARTATE AMINO TRANSFERASE 1318 U/L (14-36)
--- NOTE | 2017-07-27 14:04 | RADIOLOGY REPORT (SQ) ---
EXAM DESCRIPTION: CHEST SINGLE VIEW COMPLETED DATE/TIME: 07/27/2017 1:57 pm REASON FOR STUDY: Shortness of breath, portable COMPARISON: Correlation made to CT from 05/12/2017. EXAM PARAMETERS: NUMBER OF VIEWS: One view. TECHNIQUE: Single frontal radiographic view of the chest acquired. RADIATION DOSE: NA LIMITATIONS: None. FINDINGS: LUNGS AND PLEURA: Elevation right hemidiaphragm with associated airspace disease. Possibl e pleural effusion. Left lung is grossly clear. No pneumothorax. MEDIASTINUM AND HILAR STRUCTURES: No masses. Contour normal. HEART AND VASCULAR STRUCTURES: Heart stable in size. Normal vasculature. BONES: No acute findings. HARDWARE: Right-sided Port-A-Cath in place OTHER: No other significant finding. IMPRESSION: NEW ELEVATION OF THE RIGHT HEMIDIAPHRAGM WITH ASSOCIATED AIRSPACE DISEASE AND POSSIBLE P LEURAL EFFUSION THIS MAY REPRESENT SEQUELA TO PATIENT'S KNOWN MALIGNANCY HOWEVER SUPERIMPOSED PNEUMON IA CANNOT BE EXCLUDED. CORRELATE WITH FEVER/ ELEVATED WHITE BLOOD CELL COUNT. TECHNICAL DOCUMENTATION: JOB ID: [id number] [employer]- All Rights Reserved Reading location - IP/workstation name: [email or web address]
[2017-07-27] MEDS ORDERED: NORMAL SALINE 1000 ML 1,000 ML IV ONE (14:36)
[2017-07-27] MEDS ORDERED: ONDANSETRON 4 MG TAB.RAPDIS PO PRN (15:32)
--- NOTE | 2017-07-27 16:13 | RADIOLOGY REPORT (SQ) ---
EXAM DESCRIPTION: CT CHEST WITH COMPLETED DATE/TIME: 07/27/2017 4:01 pm REASON FOR STUDY: EVALUATE FOR R EFFUSION VS MASS VS PNA COMPARISON: Recent radiographs. CT chest 05/12/2017. TECHNIQUE: CT scan of the chest performed using helical scanning technique with dynamic intravenous contrast injection. Images reviewed with lung, soft tissue and bone windows. Reconstructed coronal and sagittal MPR images reviewed. All images stored on PACS. All CT scanners at this facility use dose modulation, iterative reconstruction, and/or weight based d osing when appropriate to reduce radiation dose to as low as reasonably achievable (ALARA). [facility]: Dose Right [facility]: CareDose [facility]: Dose Right [facility]: Teradose 4D [facility]: PhoneAndPhone CONTRAST TYPE AND DOSE: contrast/concentration: Isovue 370.00 mg/ml; Total Contrast Delivered: 80.0 ml; Total Saline Delivered: 55.0 ml RENAL FUNCTION: Creatinine 0.41 RADIATION DOSE: CT Rad equipment meets quality standard of care and radiation dose reduction techniq ues were employed. CTDIvol: 9.4 mGy. DLP: 305 mGy-cm. . LIMITATIONS: None. FINDINGS: LUNGS AND PLEURA: Small right pleural effusion. Trace left pleural effusion. Consolidati on and volume loss in the right middle lobe and right lower lobe. Since the previous study, numerous nodules and masses have developed, scattered throughout the bilateral lung ríos. These measure up to at least 1.4 cm maximal dimension. HILAR AND MEDIASTINAL STRUCTURES: Interval development of adenopathy. Enlarged right paratracheal no de measures close to 2 cm. HEART AND VASCULAR STRUCTURES: No aneurysm or dissection. No central pulmonary emboli. No pericardi al effusion. HARDWARE: Right port. UPPER ABDOMEN: Innumerable liver lesions, generally probably progressive in size and number. Marked hepatomegaly. THYROID AND OTHER SOFT TISSUES: No masses. No adenopathy. BONES: No significant finding. OTHER: No other significant finding. IMPRESSION: 1. Innumerable pulmonary nodules have developed along with mediastinal adenopathy. Give n the extensive liver metastases and known malignancy, likely metastatic pulmonary nodules. 2. Small effusions, right greater than left. Volume loss and consolidation in the right lung. TECHNICAL DOCUMENTATION: JOB ID: [id number] Quality ID # [id number]: Final reports with documentation of one or more dose reduction techniques (e.g., Au tomated exposure control, adjustment of the mA and/or kV according to patient size, use of iterative reconstruction technique) 2010 [employer]- All Rights Reserved Reading location - IP/workstation name: [email or web address]
--- NOTE | 2017-07-27 17:23 | PDOC H&P ---
History of Present Illness Admission Date/PCP: 07/27/17 15:02 Patient complains of: Vertigo History of Present Illness: LAURY POLLOCK is a 67 year old female who presents to the emergency department with a chief complaint of vertigo. She states that she woke up this morning roughly 0800 and when she sat up in bed she felt that the "room was spinning." She denies any vision changes, headache, or loss of consciousness. The patient states that her symptoms have been happening intermittently today, she notices that it is associated with moving from the supine to sitting position. Her episodes of vertigo typically last about 5-10 minutes. She denies any associated nausea or vomiting. PMH includes Pancreatic cancer with metastasis to the liver (currently undergoing palliative chemotherapy, last tx 07/25), HLD, HTN, DM, arrhythmia, anxiety. Upon arrival to the emergency department, her BP 131/64 HR 115 T98.6 SPO2 96%. She was treated with 1L IVF and a dose of Antivert, which she states has greatly improved her symptoms. Of note, chest x-ray reveals new elevation of the right hemidiaphragm with associated airspace disease and possible pleural effusion. Upon my evaluation, the patient is resting comfortably in bed, sitting upright at the edge of the bed. The patient denies SOB or dyspnea, she also denies dizziness or symptoms of vertigo. The patient does endorsed epigastric and RUQ abdominal pain, which she states is constant. This is a relatively new symptom that the patient has been endorsing for the last 3 months since her diagnosis of pancreatic cancer with metastasis to the liver. Plan for admission to hospitalist service for w/u of her hemidiaphragm as well as vertigo. Past Medical History Cardiac Medical History: Reports: Hyperlipidema, Hypertension, Other - ARRYTHMIA unspecified - currently tx with cardizem Denies: Coronary Artery Disease, Myocardial Infarction Pulmonary Medical History: Denies: Asthma, Bronchitis, Chronic Obstructive Pulmonary Disease (COPD), Pneumonia Neurological Medical History: Denies: Seizures Endocrine Medical History: Reports: Diabetes Mellitus Type 2 Malignancy Medical History: Reports: Liver Cancer, Pancreatic Cancer - See HPI. Musculoskeltal Medical History: Reports: Arthritis - GENERALIZED Hematology: Denies: Anemia Past Surgical History Past Surgical History: Reports: Cardiac Catheterization, Cholecystectomy, Orthopedic Surgery - right foot, hammer toe Social History Information Source: Patient Lives with: Family Smoking Status: Never Smoker Frequency of Alcohol Use: None Hx Recreational Drug Use: No Hx Prescription Drug Abuse: No - Advance Directive Resuscitation Status: Do Not Resuscitate Family History Family History: Reviewed & Not Pertinent, CVA - Father 80 years old Parental Family History Reviewed: Yes Children Family History Reviewed: Unknown Sibling(s) Family History Reviewed.: Yes Medication/Allergy Home Medications: Brimonidine Tartrate/Timolol [Combigan 0.2%-0.5% Eye Drops] 5 ml OU DAILY Diltiazem HCl [Diltiazem ER] 180 mg PO DAILY 07/27/17 Losartan Potassium [Cozaar 25 mg Tablet] 25 mg PO DAILY 07/27/17 Metformin HCl [Glucophage] 1,000 mg PO DAILY 07/27/17 Modafinil [Provigil] 200 mg PO DAILYP PRN 07/27/17 Morphine Sulfate 30 mg PO BID 07/27/17 Tramadol HCl [Ultram 50 mg Tablet] 50 mg PO DAILYP PRN 07/27/17 Allergies/Adverse Reactions: No Known Allergies Allergy (Verified 07/27/17 10:36) Review of Systems All systems: reviewed and no additional remarkable complaints except as stated Physical Exam Vital Signs: Temp Pulse Resp BP Pulse Ox 98.6 F 115 H 20 128/70 H 95 07/27/17 10:22 07/27/17 10:22 07/27/17 13:48 07/27/17 13:49 07/27/17 13:48 General appearance: PRESENT: no acute distress Eye exam: PRESENT: conjunctiva pink, PERRLA Mouth exam: PRESENT: dry mucosa Neck exam: PRESENT: full ROM Respiratory exam: PRESENT: clear to auscultation ronnie, symmetrical, unlabored Cardiovascular exam: PRESENT: +S1, +S2, tachycardia Pulses: PRESENT: normal radial pulses, normal dorsalis pedis pul GI/Abdominal exam: PRESENT: diminished bowel sounds, soft, tenderness. ABSENT: ascites Rectal exam: PRESENT: heme (-) stool - PER ED PHYSICIAN Extremities exam: PRESENT: full ROM Musculoskeletal exam: PRESENT: ambulatory, full ROM Neurological exam: PRESENT: alert, awake, oriented to person, oriented to place , oriented to time, oriented to situation Psychiatric exam: PRESENT: appropriate affect Skin exam: PRESENT: dry, intact, pallor Results Impressions: Chest CT 07/27/17 00:00 IMPRESSION: 1. Innumerable pulmonary nodules have developed along with mediastinal adenopathy. Given the extensive liver metastases and known malignancy, likely metastatic pulmonary nodules. 2. Small effusions, right greater than left. Volume loss and consolidation in the right lung. Chest X-Ray 07/27/17 13:19 IMPRESSION: NEW ELEVATION OF THE RIGHT HEMIDIAPHRAGM WITH ASSOCIATED AIRSPACE DISEASE AND POSSIBLE PLEURAL EFFUSION THIS MAY REPRESENT SEQUELA TO PATIENT'S KNOWN MALIGNANCY HOWEVER SUPERIMPOSED PNEUMONIA CANNOT BE EXCLUDED. CORRELATE WITH FEVER/ ELEVATED WHITE BLOOD CELL COUNT. Status: Imported from PACS Assessment & Plan - Diagnosis (1) Vertigo Is this a current diagnosis for this admission?: Yes Plan: Patient presented to the emergency department for symptoms of intermittent vertigo beginning this morning Given her symptomology, this is likely benign paroxysmal positional vertigo Plan to CT head given her new neurological symptoms, need to rule out cancer metastasis She received 1L IVF and 1 dose of Antivert, which she states greatly improved her symptoms Plan to continue PO antivert (2) Elevated hemidiaphragm Is this a current diagnosis for this admission?: Yes Plan: Unclear etiology. Chest xray revealed a new elevation of the right hemidiaphragm with associated airspace disease and possible pleural effusion. This is possibly secondary to the patient's known hepatic malignancy Unlikely to be pneumonia given the patient's nontoxic appearance. Plan for CT chest to further evaluate The patient denies symptoms of shortness of breath or dyspnea. She does not require supplemental oxygen. Lung sounds are clear in all lung ríos with the exception of her RLL, which is greatly diminished (3) HTN (hypertension) Qualifiers: Hypertension type: essential hypertension Qualified Code(s): I10 - Essential (primary) hypertension Is this a current diagnosis for this admission?: Yes Plan: Patient endorses a history of hypertension Plan to resume home medications (4) Arrhythmia Qualifiers: Premature depolarization type: unspecified Is this a current diagnosis for this admission?: Yes Plan: Patient endorses a history of unknown arrhythmia. She states that 'many years ago' she underwent a stress test which was stopped early due to a tachyarrhythmia. We will continue patient's home dose Cardizem. (5) Cancer Is this a current diagnosis for this admission?: Yes Plan: The patient endorses new diagnosis of pancreatic cancer with metastasis to the liver Reportedly, approximately 80% of her liver is cancerous. The patient is currently undergoing treatment at [facility] as directed by Dr. Paulino Plan to restart the patient's home doses of pain medication for her metastatic disease - Time Critical Time spent with patient: 15-24 minutes Medications reviewed and adjusted accordingly: Yes Anticipated discharge: Home - Inpatient Certification Based on my medical assessment, after consideration of the patient's comorbidities, presenting symptoms, or acuity I expect that the services needed warrant INPATIENT care.: Yes I certify that my determination is in accordance with my understanding of Medicare's requirements for reasonable and necessary INPATIENT services [42 CFR 412.3e].: Yes Medical Necessity: Risk of Complication if Not Cared For in Hospital
[2017-07-27] MEDS ORDERED: NORMAL SALINE 1000 ML 1,000 ML IV PRN (17:25)
[2017-07-27] MEDS ORDERED: MODAFINIL 200 MG PO PRN (17:28)
[2017-07-27] MEDS ORDERED: MORPHINE SULFATE 10 MG/ML INJ IV PRN (17:29)
[2017-07-27] MEDS ORDERED: MODAFINIL 100 MG TABLET PO PRN (17:59)
--- NOTE | 2017-07-27 19:10 | EKG REPORT ---
SEVERITY:- OTHERWISE NORMAL ECG - SINUS TACHYCARDIA : Confirmed by: Say Beard 27-Jul-2017 19:08:55
[2017-07-27] MEDS: MECLIZINE HCL 12.5 MG TABLET PO SCH (20:02)
[2017-07-27] MEDS: OXYCODONE HCL IR 5 MG TABLET PO PRN (20:02)
[2017-07-28] MEDS: MECLIZINE HCL 12.5 MG TABLET PO SCH (01:03)
[2017-07-28] MEDS: OXYCODONE HCL IR 5 MG TABLET PO PRN ×2 (03:40→09:07)
--- NOTE | 2017-07-28 08:34 | PDOC CONSULTATION ---
Consultation Consult Date: 07/28/17 Attending physician:: HUNG WILEY Consult reason:: Patient well-known to oncology clinic with stage IV pancreatic cancer here with dizziness, nausea and vomiting History of Present Illness Admission Date/PCP: 07/27/17 15:02 Patient complains of: Weakness, dizziness, nausea vomiting History of Present Illness: LAURY POLLOCK is a 67 year old female with known history of stage IV pancreatic cancer with large burden of disease in the liver, currently receiving Gemzar/Abraxane, has had nausea on and off with this, also feels bloated, has enlargement of the liver causing some shortness of breath as well. Comes in with 2-3 day history of increasing dizziness, also some nausea and vomiting as well as poor p.o. intake. Upon presentation she was given IV fluids , antiemetics. There is a plan to do a CT of the head, or possibly MRI, because of the new dizziness. Of note CT of the chest was done, which shows new pulmonary nodules along with liver metastasis. Past Medical History Cardiac Medical History: Reports: Hyperlipidema, Hypertension, Other - ARRYTHMIA unspecified - currently tx with cardizem Denies: Coronary Artery Disease, Myocardial Infarction Pulmonary Medical History: Denies: Asthma, Bronchitis, Chronic Obstructive Pulmonary Disease (COPD), Pneumonia Neurological Medical History: Denies: Seizures Endocrine Medical History: Reports: Diabetes Mellitus Type 2 Malignancy Medical History: Reports: Liver Cancer, Pancreatic Cancer - See HPI. Musculoskeltal Medical History: Reports: Arthritis - GENERALIZED Hematology: Denies: Anemia Past Surgical History Past Surgical History: Reports: Cardiac Catheterization, Cholecystectomy, Orthopedic Surgery - right foot, hammer toe Social History Information Source: Patient Lives with: Family Smoking Status: Never Smoker Frequency of Alcohol Use: None Hx Recreational Drug Use: No Hx Prescription Drug Abuse: No - Advance Directive Resuscitation Status: Do Not Resuscitate Family History Family History: Reviewed & Not Pertinent, CVA - Father 80 years old Parental Family History Reviewed: Yes Children Family History Reviewed: Yes Sibling(s) Family History Reviewed.: Yes Medication/Allergy Home Medications: Brimonidine Tartrate/Timolol [Combigan 0.2%-0.5% Eye Drops] 5 ml OU DAILY Diltiazem HCl [Diltiazem ER] 180 mg PO DAILY 07/27/17 Losartan Potassium [Cozaar 25 mg Tablet] 25 mg PO DAILY 07/27/17 Metformin HCl [Glucophage] 1,000 mg PO DAILY 07/27/17 Modafinil [Provigil] 200 mg PO DAILYP PRN 07/27/17 Morphine Sulfate 30 mg PO BID 07/27/17 Tramadol HCl [Ultram 50 mg Tablet] 50 mg PO DAILYP PRN 07/27/17 Allergies/Adverse Reactions: No Known Allergies Allergy (Verified 07/27/17 10:36) Review of Systems Constitutional: PRESENT: fatigue, weakness, weight loss Cardiovascular: PRESENT: dyspnea on exertion, orthropnea Gastrointestinal: PRESENT: abdominal pain, bloating, nausea, vomiting Neurological: PRESENT: dizziness, weakness Physical Exam Vital Signs: Temp Pulse Resp BP Pulse Ox 98.9 F 112 H 16 130/50 H 96 07/28/17 03:28 07/28/17 03:28 07/28/17 03:28 07/28/17 03:28 07/28/17 03:28 Intake & Output 07/27/17 07/28/17 07/29/17 06:59 06:59 06:59 Intake Total 3219 Output Total 600 Balance 2619 Weight 73 kg General appearance: PRESENT: no acute distress, well-developed, well-nourished Head exam: PRESENT: atraumatic, normocephalic Eye exam: PRESENT: conjunctiva pink, EOMI, PERRLA. ABSENT: scleral icterus Ear exam: PRESENT: normal external ear exam Mouth exam: PRESENT: moist, tongue midline Neck exam: ABSENT: carotid bruit, JVD, lymphadenopathy, thyromegaly Respiratory exam: PRESENT: clear to auscultation ronnie. ABSENT: rales, rhonchi, wheezes Cardiovascular exam: PRESENT: RRR. ABSENT: diastolic murmur, rubs, systolic murmur Pulses: PRESENT: normal dorsalis pedis pul Vascular exam: PRESENT: normal capillary refill GI/Abdominal exam: PRESENT: normal bowel sounds, soft. ABSENT: distended, guarding, mass, organolmegaly, rebound, tenderness Rectal exam: PRESENT: deferred Extremities exam: PRESENT: full ROM. ABSENT: calf tenderness, clubbing, pedal edema Neurological exam: PRESENT: alert, awake, oriented to person, oriented to place , oriented to time, oriented to situation, CN II-XII grossly intact. ABSENT: motor sensory deficit Psychiatric exam: PRESENT: appropriate affect, normal mood. ABSENT: homicidal ideation, suicidal ideation Skin exam: PRESENT: dry, intact, warm. ABSENT: cyanosis, rash Results Impressions: Chest CT 07/27/17 00:00 IMPRESSION: 1. Innumerable pulmonary nodules have developed along with mediastinal adenopathy. Given the extensive liver metastases and known malignancy, likely metastatic pulmonary nodules. 2. Small effusions, right greater than left. Volume loss and consolidation in the right lung. Chest X-Ray 07/27/17 13:19 IMPRESSION: NEW ELEVATION OF THE RIGHT HEMIDIAPHRAGM WITH ASSOCIATED AIRSPACE DISEASE AND POSSIBLE PLEURAL EFFUSION THIS MAY REPRESENT SEQUELA TO PATIENT'S KNOWN MALIGNANCY HOWEVER SUPERIMPOSED PNEUMONIA CANNOT BE EXCLUDED. CORRELATE WITH FEVER/ ELEVATED WHITE BLOOD CELL COUNT. Status: Image reviewed by me Assessment & Plan - Diagnosis (1) Vertigo Is this a current diagnosis for this admission?: Yes Plan: More likely related to poor p.o. intake as well as nausea, but agree with imaging of the brain, this is pending. Continue other supportive care per hospitalist team. (2) Pancreatic cancer metastasized to liver Is this a current diagnosis for this admission?: Yes Plan: Patient currently on chemotherapy, plan is to continue with treatment as long his performance status is appropriate. Otherwise, further imaging per Dr. Paulino. This certainly the reason however for the bloating and abdominal discomfort as well as probable cause of some of the shortness of breath as well. The pulmonary nodules as well as the elevated diaphragm from liver metastasis is probably the cause. (3) Anemia Qualifiers: Anemia type: bone marrow failure Bone marrow failure anemia type: pancytopenia, antineoplastic chemotherapy-induced Qualified Code(s): D61.810 - Antineoplastic chemotherapy induced pancytopenia; T45.1X5A - Adverse effect of antineoplastic and immunosuppressive drugs, initial encounter; T45.1X5A - Adverse effect of antineoplastic and immunosuppressive drugs, initial encounter Is this a current diagnosis for this admission?: Yes Plan: Anemia likely in large part secondary to chemotherapy, patient is on MARIA LUZ already , hemoglobin is 7.8, would follow today, we may decide on transfusion tomorrow if further drop. - Time Time Spent: Greater than 70 Minutes
[2017-07-28 09:15] LABS: ABSOLUTE LYMPHOCYTES (AUTO) 0.8 10^3/uL (0.5-4.7); ABSOLUTE NEUT (AUTO) 8.1 10^3/uL (1.7-8.2); BASOPHILS % (AUTO) 0.3 % (0-2); EOSINOPHILS % (AUTO) 0.2 % (0-6); HEMATOCRIT 23.4 % (36.0-47.0); HEMOGLOBIN 7.9 g/dL (12.0-15.5); LYMPHOCYTES % (AUTO) 8.8 % (13-45); MEAN CORPUSCULAR HEMOGLOBIN 29.6 pg (27.0-33.4); MEAN CORPUSCULAR HGB CONC 33.7 g/dL (32.0-36.0); MEAN CORPUSCULAR VOLUME 88 fl (80-97); MONOCYTES % (AUTO) 0.2 % (3-13); PLATELET COUNT 322 10^3/uL (150-450); RED BLOOD COUNT 2.66 10^6/uL (3.72-5.28); RED CELL DISTRIBUTION WIDTH 17.9 % (11.5-14.0); SEGMENTED NEUTROPHILS % (AUTO) 90.5 % (42-78); TOTAL CELLS COUNTED % (AUTO) 100 %; WHITE BLOOD COUNT 8.9 10^3/uL (4.0-10.5)
[2017-07-28 09:25] LABS: ANION GAP 9 (5-19); BLOOD UREA NITROGEN 10 mg/dL (7-20); CALCIUM 7.7 mg/dL (8.4-10.2); CARBON DIOXIDE 28 mmol/L (22-30); CHLORIDE 98 mmol/L (98-107); GLUCOSE 118 mg/dL (75-110); PHOSPHORUS 2.9 mg/dL (2.5-4.5); POTASSIUM 3.8 mmol/L (3.6-5.0); SODIUM 134.8 mmol/L (137-145)
[2017-07-28] MEDS ORDERED: LOSARTAN POTASSIUM 25 MG TABLET PO SCH (10:00)
[2017-07-28] MEDS ORDERED: DILTIAZEM HCL 180 MG CAPSULE.CR PO SCH (10:00)
[2017-07-28] MEDS ORDERED: (PENDING PHARMACY ID) (Brimonidine Tartrate/Timolol [Combigan 0.2%-0.5% Eye Drops] 5 ML) OU SCH (10:00)
[2017-07-28] MEDS ORDERED: MECLIZINE HCL 12.5 MG TABLET PO SCH (10:00)
[2017-07-28] MEDS ORDERED: MORPHINE SULFATE SR 15 MG TABLET PO ONE (12:00)
[2017-07-28 14:15] VITALS: BP 136/69
[2017-07-28] MEDS ORDERED: MORPHINE SULFATE SR 15 MG TABLET PO SCH (22:00)
--- NOTE | 2017-07-29 17:03 | RADIOLOGY REPORT (SQ) ---
EXAM DESCRIPTION: CT HEAD WITHOUT COMPLETED DATE/TIME: 07/28/2017 10:11 am REASON FOR STUDY: evaluate for brain metastasis. new c/o dizziness COMPARISON: 09/07/2013 TECHNIQUE: Axial images acquired through the brain without intravenous contrast. Images reviewed wi th bone, brain and subdural windows. Additional sagittal and coronal reconstructions were generated. Images stored on PACS. All CT scanners at this facility use dose modulation, iterative reconstruction, and/or weight based d osing when appropriate to reduce radiation dose to as low as reasonably achievable (ALARA). [facility]: Dose Right [facility]: CareDose [facility]: Dose Right [facility]: Teradose 4D [facility]: Glio RADIATION DOSE: 854.80 Total exam DLP. LIMITATIONS: None. FINDINGS: VENTRICLES: Normal size and contour. The cisterns are patent. CEREBRUM: No masses. No hemorrhage. No midline shift. No evidence for acute infarction. Normal gra y/white matter differentiation. No areas of low density in the white matter. CEREBELLUM: No masses. No hemorrhage. No alteration of density. No evidence for acute infarction. EXTRAAXIAL SPACES: Mild age related involutional change. No fluid collections. No masses. ORBITS AND GLOBE: No intra- or extraconal masses. Normal contour of globe without masses. CALVARIUM: No fracture. PARANASAL SINUSES: No fluid or mucosal thickening. SOFT TISSUES: No mass or hematoma. OTHER: Mild atherosclerotic changes involving the visualized intracranial portion of the internal ca rotid arteries. IMPRESSION: 1 No significant interval changes since the prior examination dated 09/07/2013. No acute intracranial abnormality. EVIDENCE OF ACUTE STROKE: NO. COMMENT: Quality ID # [id number]: Final reports with documentation of one or more dose reduction techniques (e.g., Automated exposure control, adjustment of the mA and/or kV according to patient size, use of iterative reconstruction technique) TECHNICAL DOCUMENTATION: JOB ID: [id number] [employer]- All Rights Reserved Reading location - IP/workstation name: [email or web address]
--- NOTE | 2017-08-19 14:17 | PDOC DISCHARGE SUMMARY ---
General - Admit/Disc Date/PCP Admission Date/Primary Care Provider: 07/27/17 15:02 Discharge Date: 07/28/17 - Discharge Diagnosis (1) Vertigo Is this a current diagnosis for this admission?: Yes (2) Elevated hemidiaphragm Is this a current diagnosis for this admission?: Yes (3) HTN (hypertension) Is this a current diagnosis for this admission?: Yes (4) Arrhythmia Is this a current diagnosis for this admission?: Yes (5) Cancer Is this a current diagnosis for this admission?: Yes - Additional Information Resuscitation Status: Do Not Resuscitate Discharge Diet: As Tolerated Discharge Activity: Activity As Tolerated, Balance Activity w/Rest Prescriptions: Meclizine HCl [Antivert 12.5 mg Tablet] 12.5 mg PO Q8A #60 tablet Home Medications: Brimonidine Tartrate/Timolol [Combigan 0.2%-0.5% Eye Drops] 5 ml OU DAILY Diltiazem HCl [Diltiazem ER] 180 mg PO DAILY 07/27/17 Losartan Potassium [Cozaar 25 mg Tablet] 25 mg PO DAILY 07/27/17 Metformin HCl [Glucophage] 1,000 mg PO DAILY 07/27/17 Modafinil [Provigil] 200 mg PO DAILYP PRN 07/27/17 Morphine Sulfate 30 mg PO BID 07/27/17 Tramadol HCl [Ultram 50 mg Tablet] 50 mg PO DAILYP PRN 07/27/17 Meclizine HCl [Antivert 12.5 mg Tablet] 12.5 mg PO Q8A #60 tablet 07/28/17 History of Present Illness History of Present Illness: LAURY POLLOCK is a 67 year old female who presents to the emergency department with a chief complaint of vertigo. She states that she woke up this morning roughly 0800 and when she sat up in bed she felt that the "room was spinning." She denies any vision changes, headache, or loss of consciousness. The patient states that her symptoms have been happening intermittently today, she notices that it is associated with moving from the supine to sitting position. Her episodes of vertigo typically last about 5-10 minutes. She denies any associated nausea or vomiting. PMH includes Pancreatic cancer with metastasis to the liver (currently undergoing palliative chemotherapy, last tx 07/25), HLD, HTN, DM, arrhythmia, anxiety. Upon arrival to the emergency department, her BP 131/64 HR 115 T98.6 SPO2 96%. She was treated with 1L IVF and a dose of Antivert, which she states has greatly improved her symptoms. Of note, chest x-ray reveals new elevation of the right hemidiaphragm with associated airspace disease and possible pleural effusion. Upon my evaluation, the patient is resting comfortably in bed, sitting upright at the edge of the bed. The patient denies SOB or dyspnea, she also denies dizziness or symptoms of vertigo. The patient does endorsed epigastric and RUQ abdominal pain, which she states is constant. This is a relatively new symptom that the patient has been endorsing for the last 3 months since her diagnosis of pancreatic cancer with metastasis to the liver. Plan for admission to hospitalist service for w/u of her hemidiaphragm as well as vertigo. Hospital Course Hospital Course: Patient presented to the emergency department for symptoms of intermittent vertigo, worse when moving from supine to sitting/standing position. The reports that she has not been eating or drinking very much following her chemotherapy treatment. Given her history and symptomology, this is likely benign paroxysmal positional vertigo secondary to dehydration. While in the emergency department, she received 1L IVF and 1 dose of Antivert, which she stated greatly improved her symptoms. CT of the head was done given her neurological symptoms, results were benign. No new lesions, tumors, or other pathology. Chest xray revealed a new elevation of the right hemidiaphragm with associated airspace disease and possible pleural effusion. Chest CT was performed, which demonstrated marked hepatomegaly and innumberable liver lesions , progressed in size and number when compared to previous radiology scans. There was no evidence of a pleural effusion or PNA. The patient denied symptoms of shortness of breath or dyspnea. She did not require supplemental oxygen. Lung sounds were clear in all lung ríos with the exception of her RLL, which is greatly diminished. The patient endorses new diagnosis of pancreatic cancer with metastasis to the liver. Reportedly, approximately 80% of her liver is cancerous. The patient reported she was undergoing treatment at [facility] as directed by Dr. Paulino. After 24hrs of hospitalization, the patient reported feeling much better. She was able to ambulate without difficulty, her vital signs were stable, her vertigo was managable, and her pain was relatively well controlled. The patient was discharged home with a new prescription for Antivert. She was instructed to stay well hydrated and to stay away from caffeine, which can lead to dehydration and exacerbate her vertigo. The patient was also advised to follow up with her oncologist. The patient stated understanding of her instructions. Physical Exam Vital Signs: Temp Pulse Resp BP Pulse Ox 98.9 F 114 H 16 136/69 H 96 07/28/17 14:11 07/28/17 14:11 07/28/17 14:11 07/28/17 14:11 07/28/17 14:11 Results Laboratory Results: 07/28/17 08:59 07/28/17 08:59 Impressions: Chest CT 07/27/17 00:00 IMPRESSION: 1. Innumerable pulmonary nodules have developed along with mediastinal adenopathy. Given the extensive liver metastases and known malignancy, likely metastatic pulmonary nodules. 2. Small effusions, right greater than left. Volume loss and consolidation in the right lung. Chest X-Ray 07/27/17 13:19 IMPRESSION: NEW ELEVATION OF THE RIGHT HEMIDIAPHRAGM WITH ASSOCIATED AIRSPACE DISEASE AND POSSIBLE PLEURAL EFFUSION THIS MAY REPRESENT SEQUELA TO PATIENT'S KNOWN MALIGNANCY HOWEVER SUPERIMPOSED PNEUMONIA CANNOT BE EXCLUDED. CORRELATE WITH FEVER/ ELEVATED WHITE BLOOD CELL COUNT. Head CT 07/28/17 00:00 IMPRESSION: 1 No significant interval changes since the prior examination dated 09/07/2013. No acute intracranial abnormality. EVIDENCE OF ACUTE STROKE: NO. Status: Imported from PACS Qualifiers - * PATIENT BEING DISCHARGED WITH ANY OF THE FOLLOWING DIAGNOSIS: No Plan Time Spent: Less than 30 Minutes
== END 2017-07-28 14:35 | disposition home or self-care (01) | DRG 149 ==
LOC: ER 10:16 → EH 15:02 → 5 16:30
PROVIDERS: ADMIT Family Medicine; ATTEND Family Medicine
DX: H81.10 Benign paroxysmal vertigo, unspecified ear (principal); D61.810 Antineoplastic chemotherapy induced pancytopenia; C25.9 Malignant neoplasm of pancreas, unspecified; C78.7 Secondary malignant neoplasm of liver and intrahepatic bile duct; J90 Pleural effusion, not elsewhere classified; E87.1 Hypo-osmolality and hyponatremia; R10.9 Unspecified abdominal pain; E86.0 Dehydration; Z66 Do not resuscitate; I49.9 Cardiac arrhythmia, unspecified; D64.81 Anemia due to antineoplastic chemotherapy; D63.8 Anemia in other chronic diseases classified elsewhere; E78.00 Pure hypercholesterolemia, unspecified; I10 Essential (primary) hypertension; E11.9 Type 2 diabetes mellitus without complications; Z79.84 Long term (current) use of oral hypoglycemic drugs; Z79.899 Other long term (current) drug therapy
CPT/HCPCS: 36415; 70450; 71045; 71260; 80048; 80053; 81001; 82272; 83690; 83735; 83880; 84100; 85025; 87040; 87086; 93005; 93010; 99285; J3490; J7030; J7120

== ENCOUNTER 2017-08-18 18:51 | Inpatient (IN) | payer BC, MEDICARE, OTHER ==
--- NOTE | 2017-08-18 19:39 | ER Document Report ---
ED General - General Chief Complaint: Shortness Of Breath Stated Complaint: SHORT OF BREATH Time Seen by Provider: 08/18/17 19:23 Notes: Patient is a 67 year old female comes emergency department for chief complaint of confusion, difficulty breathing, states that she has been worsening since yesterday, he states he thinks it is related to her extended release morphine, he did not give her her last dose because she was beginning to get confused, and like she was uncomfortable, and started breathing harder. No fever, no vomiting, no other complaints. Patient is currently on chemotherapy, she has pancreatic cancer with history of metastasis to the liver. Patient has swelling in her arms and legs but has been states this is not new. No history of CO, CHF, COPD, or smoking. PMH includes Diabetes and anemia requiring transfusions. Patient has DNR advanced directives. Oncologist is Dr. Graham. TRAVEL OUTSIDE OF THE [place] IN LAST 30 DAYS: No - Related Data Allergies/Adverse Reactions: No Known Allergies Allergy (Verified 08/18/17 18:51) Past Medical History - General Information source: Patient - Social History Smoking Status: Former Smoker Frequency of alcohol use: None Drug Abuse: None Lives with: Spouse/Significant other Family History: Reviewed & Not Pertinent, CVA - Father 80 years old - Past Medical History Cardiac Medical History: Reports: Hx Hypercholesterolemia, Hx Hypertension Denies: Hx Coronary Artery Disease, Hx Heart Attack Pulmonary Medical History: Denies: Hx Asthma, Hx Bronchitis, Hx COPD, Hx Pneumonia Neurological Medical History: Denies: Hx Cerebrovascular Accident, Hx Seizures Endocrine Medical History: Reports: Hx Diabetes Mellitus Type 2 Renal/ Medical History: Denies: Hx Peritoneal Dialysis Malignancy Medical History: Reports: Hx Liver Cancer, Hx Pancreatic Cancer - See HPI. Musculoskeltal Medical History: Reports Hx Arthritis - GENERALIZED Past Surgical History: Reports: Hx Cardiac Catheterization, Hx Cholecystectomy, Hx Orthopedic Surgery - right foot, hammer toe - Immunizations Hx Diphtheria, Pertussis, Tetanus Vaccination: Yes Hx Pneumococcal Vaccination: 01/22/17 Review of Systems - Review of Systems Constitutional: See HPI EENT: No symptoms reported Cardiovascular: See HPI Respiratory: See HPI Gastrointestinal: See HPI Genitourinary: No symptoms reported Female Genitourinary: No symptoms reported Musculoskeletal: No symptoms reported Skin: No symptoms reported Hematologic/Lymphatic: No symptoms reported Neurological/Psychological: No symptoms reported Physical Exam - Vital signs Vitals: Pulse Ox 84 L 08/18/17 19:00 - Notes Notes: GENERAL: Patient pale, answers questions but is not very alert HEAD: Normocephalic, atraumatic. EYES: Pupils equal, round, and reactive to light. Extraocular movements intact. ENT: Dry mucous membranes, tongue midline NECK: Full range of motion. Supple. Trachea midline. LUNGS: Clear to auscultation bilaterally, no wheezes, rales, or rhonchi. Tachypnea noted. HEART: Tachycardia with normal rhythm, no murmur noted ABDOMEN: Soft, non-tender. Non-distended. Bowel sounds present in all 4 quadrants. EXTREMITIES: Moves all 4 extremities spontaneously. Edema in all extremities, pitting edema in the legs, distal pulses intact BACK: no cervical, thoracic, lumbar midline tenderness. No saddle anesthesia, normal distal neurovascular exam. NEUROLOGICAL: Patient is disoriented, answers questions inappropriately. Normal speech. [cranial nerves II through XII grossly intact]. SKIN: Warm, dry, normal turgor. No rashes or lesions noted. Course - Re-evaluation Re-evalutation: Patient is very ill in appearance, swollen extremities, confused, tachycardic. Patient hypoxic on room air, hypoxic on oxygen, will be placed on BiPAP. She is also hypothermic. came to the room, I discussed that with her history of stage IV pancreatic cancer with metastasis and with her current presentation there is a very good chance that she will within the next 24 hours. I discussed comfort measures. declined, states he would like to see what we can do for her first and he is not in agreement with comfort measures at this time. CBC shows anemia, chemistry shows severe acute renal failure with creatinine of 4.7 and GFR of 9 which was previously normal. Potassium of 6.5. VBG shows metabolic acidosis. CT of the head unremarkable. Initially medications were given for hyperkalemia and rehydration, however I spoke to Willem, the , in great detail again. I discussed that with patient's hyperkalemia and severe acute renal failure will most likely need transfer to a tertiary care center for dialysis since we do not have nephrology national sales manager. Patient was discussed with Dr. Campos. Discussed patient's overall condition, expectation that she will most likely not survive this, and what would be required to prolong her situation. After discussion Willem her states that he is in a full support of comfort care. I called Dr. Graham, patient's Oncologist, she is also in agreement with admission for comfort care. stated he wants to go home and sleep for a few hours and will come back. Advised that she could before he came back and he states understanding. Patient still confused and agitated, babbling. Giving Ativan and Fentanyl. Discussed with Dr. Olea, internal medicine, patient will be admitted to the hospital floor if she does not pass in the emergency department first. Patient has been reevaluated 3 more times. She started arousing and became slightly agitated once several hours after initial Ativan, reducing fentanyl and Ativan. Blood pressure in the 80s systolic, pulse ox in the 80s, patient is becoming more apneic. - Vital Signs Vital signs: Temp Pulse Resp BP Pulse Ox 96.7 F L 101 H 13 99/48 L 96 08/19/17 00:09 08/18/17 19:01 08/19/17 05:01 08/19/17 05:01 08/19/17 05:01 - Laboratory Result Diagrams: 08/18/17 20:10 08/18/17 20:10 Laboratory results interpreted by me: 08/18/17 08/18/17 08/18/17 20:10 20:10 20:29 WBC 13.7 H RBC 2.81 L Hgb 8.2 L Hct 25.3 L RDW 21.9 H Metamyelocytes % 3 H Myelocytes % 2 H Abs Neuts (Manual) 10.1 H Abs Monocytes (Manual) 1.5 H VBG pH VBG pCO2 VBG HCO3 Sodium 131.9 L Potassium 6.5 H* Chloride 96 L Carbon Dioxide 10 L* Anion Gap 26 H BUN 71 H Creatinine 4.72 H Est GFR ( Amer) 11 L Est GFR (Non-Af Amer) 9 L Direct Bilirubin 1.0 H AST 931 H ALT 78 H Alkaline Phosphatase 755 H Creatine Kinase 752 H Total Protein 5.8 L Albumin 3.1 L Urine Protein 100 H Urine Blood SMALL H 08/18/17 20:50 WBC RBC Hgb Hct RDW Metamyelocytes % Myelocytes % Abs Neuts (Manual) Abs Monocytes (Manual) VBG pH 7.24 L VBG pCO2 20.7 L VBG HCO3 8.7 L Sodium Potassium Chloride Carbon Dioxide Anion Gap BUN Creatinine Est GFR ( Amer) Est GFR (Non-Af Amer) Direct Bilirubin AST ALT Alkaline Phosphatase Creatine Kinase Total Protein Albumin Urine Protein Urine Blood Discharge - Discharge Clinical Impression: Metabolic acidosis, Pancreatic cancer metastasized to liver, Comfort measures only status Acute renal failure Qualifiers: Acute renal failure type: unspecified Qualified Code(s): N17.9 - Acute kidney failure, unspecified Condition: Critical Disposition: ADMITTED INPATIENT Admitting Provider: Hospitalist Unit Admitted: Medical Floor
[2017-08-18 20:34] LABS: HEMATOCRIT 25.3 % (36.0-47.0); HEMOGLOBIN 8.2 g/dL (12.0-15.5); MEAN CORPUSCULAR HEMOGLOBIN 29.2 pg (27.0-33.4); MEAN CORPUSCULAR HGB CONC 32.4 g/dL (32.0-36.0); MEAN CORPUSCULAR VOLUME 90 fl (80-97); PLATELET COUNT 319 10^3/uL (150-450); RED BLOOD COUNT 2.81 10^6/uL (3.72-5.28); RED CELL DISTRIBUTION WIDTH 21.9 % (11.5-14.0); WHITE BLOOD COUNT 13.7 10^3/uL (4.0-10.5)
[2017-08-18 20:46] LABS: ALANINE AMINOTRANSFERASE 78 U/L (9-52); ALBUMIN 3.1 g/dL (3.5-5.0); ALKALINE PHOSPHATASE 755 U/L (38-126); BLOOD UREA NITROGEN 71 mg/dL (7-20); CALCIUM 8.6 mg/dL (8.4-10.2); CREATINE KINASE 752 U/L (30-135); GLUCOSE 103 mg/dL (75-110); TOTAL PROTEIN 5.8 g/dL (6.3-8.2)
[2017-08-18 20:51] LABS: CHLORIDE 96 mmol/L (98-107); SODIUM 131.9 mmol/L (137-145)
[2017-08-18 20:57] LABS: CREATINE KINASE MB 1.52 ng/mL (<4.55)
[2017-08-18 20:58] LABS: ANION GAP 26 (5-19)
[2017-08-18 20:59] LABS: ASPARTATE AMINO TRANSFERASE 931 U/L (14-36)
--- NOTE | 2017-08-18 21:02 | RADIOLOGY REPORT (SQ) ---
EXAM DESCRIPTION: CHEST SINGLE VIEW COMPLETED DATE/TIME: 08/18/2017 8:46 pm REASON FOR STUDY: shortness of breath, confusion COMPARISON: 07/27/2017. EXAM PARAMETERS: NUMBER OF VIEWS: One view. TECHNIQUE: Single frontal radiographic view of the chest acquired. RADIATION DOSE: NA LIMITATIONS: None. FINDINGS: LUNGS AND PLEURA: Mild elevation of the right hemidiaphragm. No opacities, masses or pneu mothorax. No pleural effusion. MEDIASTINUM AND HILAR STRUCTURES: No masses. Contour normal. HEART AND VASCULAR STRUCTURES: Heart normal in size. Normal vasculature. BONES: No acute findings. HARDWARE: Vascular access port. OTHER: No other significant finding. IMPRESSION: NO ACUTE RADIOGRAPHIC FINDING IN THE CHEST. TECHNICAL DOCUMENTATION: JOB ID: [id number] [employer]- All Rights Reserved Reading location - IP/workstation name: [email or web address]
[2017-08-18 21:04] LABS: TROPONIN I < 0.012 ng/mL
[2017-08-18 21:05] LABS: ABSOLUTE LYMPHOCYTES# (MANUAL) 2.1 10^3/uL (0.5-4.7); ABSOLUTE MONOCYTES # (MANUAL) 1.5 10^3/uL (0.1-1.4); ABSOLUTE NEUTROPHILS# (MANUAL) 10.1 10^3/uL (1.7-8.2); ANISOCYTOSIS 3+; BASOPHILS % (MANUAL) 0 % (0-2); EOSINOPHILS % (MANUAL) 0 % (0-6); LYMPHOCYTES % (MANUAL) 15 % (13-45); MONOCYTES % (MANUAL) 11 % (3-13); NUCLEATED RED BLOOD CELLS 15 /100 WBC (0); PLATELET COMMENT ADEQUATE; PLATELET GIANT PRESENT; PLATELET LARGE PRESENT; POLYCHROMASIA SLIGHT; SEGMENTED NEUTROPHILS % (MAN) 69 % (42-78); TOTAL CELLS COUNTED 100
[2017-08-18 21:06] LABS: VENOUS BLOOD BASE EXCESS -16.7 mmol/L; VENOUS BLOOD HCO3 8.7 mmol/L (20-32); VENOUS BLOOD PCO2 20.7 mmHg (35-63); VENOUS BLOOD PH 7.24 (7.30-7.42)
[2017-08-18 21:06] LABS: METAMYELOCYTES % (MANUAL) 3 % (0); MYELOCYTES % (MANUAL) 2 % (0)
[2017-08-18 21:18] LABS: CARBON DIOXIDE 10 mmol/L (22-30); POTASSIUM 6.5 mmol/L (3.6-5.0)
[2017-08-18 21:19] LABS: AMORPHOUS SEDIMENT,URINE TRACE /HPF; APPEARANCE,URINE CLOUDY; BILIRUBIN,URINE NEGATIVE (NEGATIVE); COLOR,URINE AMBER; GLUCOSE, URINE NEGATIVE (NEGATIVE); KETONES,URINE NEGATIVE (NEGATIVE); LEUKOCYTE ESTERASE,URINE NEGATIVE (NEGATIVE); NITRITE,URINE NEGATIVE (NEGATIVE); PROTEIN,URINE 100 mg/dL (NEGATIVE); URINE SPECIFIC GRAVITY 1.017; UROBILINOGEN,URINE NEGATIVE mg/dL (<2.0)
[2017-08-18] MEDS ORDERED: NORMAL SALINE 1000 ML 1,000 ML IV ONE (21:31)
[2017-08-18] MEDS ORDERED: CALCIUM GLUCONATE 1000 MG/10 ML INJ IV ONE (21:32)
[2017-08-18] MEDS ORDERED: INSULIN REG, HUMAN 100 UNIT/ML 3 ML VIAL (PYX) IV ONE (21:32)
[2017-08-18] MEDS ORDERED: DEXTROSE 50%-WATER 25 GM/50 ML DISP.SYRIN IV ONE (21:32)
--- NOTE | 2017-08-18 22:30 | EKG REPORT ---
SEVERITY:- ABNORMAL ECG - SINUS TACHYCARDIA NONSPECIFIC INTRAVENTRICULAR CONDUCTION DELAY : Confirmed by: Say Beard 18-Aug-2017 22:29:16
--- NOTE | 2017-08-18 22:38 | RADIOLOGY REPORT (SQ) ---
PROCEDURE: CLINICAL HISTORY: 67 years Female confusion COMPARISON: None. TECHNIQUE: Contiguous axial CT images obtained through the brain without IV contrast. This exam was performed according to our department optimization program which includes automated exposure control, adjustment of the mA and/or kv according to patient size and/or use of iterative reconstruction technique. FINDINGS: The ventricles and sulci are prominent consistent with atrophic changes. No mass lesions. No acute hemorrhage. Atherosclerotic calcifications. No fluid or significant mucosal thickening in the visualized paranasal sinuses. No depressed calvarial fractures. IMPRESSION: No acute intracranial abnormality is identified.
[2017-08-18] MEDS ORDERED: LORAZEPAM INJ 2 MG/1 ML VIAL IV ONE (22:50)
[2017-08-18] MEDS ORDERED: FENTANYL CITRATE INJ/PF 100 MCG/2 ML AMPUL IV ONE (22:58)
[2017-08-19] MEDS ORDERED: SCOPOLAMINE HYDROBROMIDE 1.5 MG PATCH.TD72 TD ONE (00:24)
[2017-08-19] MEDS ORDERED: SCOPOLAMINE HYDROBROMIDE 1.5 MG PATCH.TD72 ONE (00:53)
[2017-08-19] MEDS ORDERED: ATROPINE SULFATE INJ 0.4 MG/1 ML VIAL IV ONE (02:14)
[2017-08-19] MEDS ORDERED: FENTANYL CITRATE INJ/PF 100 MCG/2 ML AMPUL IV ONE (04:34)
[2017-08-19] MEDS ORDERED: LORAZEPAM INJ 2 MG/1 ML VIAL IV ONE (04:58)
[2017-08-19] MEDS ORDERED: MORPHINE SULFATE 10 MG/ML INJ IV PRN (06:12)
[2017-08-19] MEDS ORDERED: ATROPINE SULFATE INJ 0.4 MG/1 ML VIAL IM ONE (06:17)
--- NOTE | 2017-08-19 06:28 | PDOC H&P ---
History of Present Illness Admission Date/PCP: 08/19/17 05:35 Patient complains of: Shortness of breath History of Present Illness: LAURY POLLOCK is a 67 year old female with history of end-stage pancreatic cancer with metastasis. Presents with several days of confusion and shortness of breath. Patient's oncologist contacted recommending hospice and comfort measures. Patient is nonverbal with profound encephalopathy. Patient's agrees to comfort measures status. She is started on fentanyl, morphine , scopolamine and atropine referred to the hospitalist for admission. Past Medical History Cardiac Medical History: Reports: Hyperlipidema, Hypertension Denies: Coronary Artery Disease, Myocardial Infarction Pulmonary Medical History: Denies: Asthma, Bronchitis, Chronic Obstructive Pulmonary Disease (COPD), Pneumonia Neurological Medical History: Denies: Seizures Endocrine Medical History: Reports: Diabetes Mellitus Type 2 Malignancy Medical History: Reports: Liver Cancer, Pancreatic Cancer - See HPI. Musculoskeltal Medical History: Reports: Arthritis - GENERALIZED Hematology: Denies: Anemia Past Surgical History Past Surgical History: Reports: Cardiac Catheterization, Cholecystectomy, Orthopedic Surgery - right foot, hammer toe Social History Information Source: [facility] Records Lives with: Spouse/Significant other Smoking Status: Former Smoker Frequency of Alcohol Use: None Hx Recreational Drug Use: No Hx Prescription Drug Abuse: No - Advance Directive Resuscitation Status: Do Not Resuscitate Family History Family History: CVA - Father 80 years old Parental Family History Reviewed: No - Unobtainable Children Family History Reviewed: No - Unobtainable Sibling(s) Family History Reviewed.: No - Unobtainable Medication/Allergy Home Medications: Brimonidine Tartrate/Timolol [Combigan 0.2%-0.5% Eye Drops] 5 ml OU DAILY Diltiazem HCl [Diltiazem ER] 180 mg PO DAILY 07/27/17 Losartan Potassium [Cozaar 25 mg Tablet] 25 mg PO DAILY 07/27/17 Metformin HCl [Glucophage] 1,000 mg PO DAILY 07/27/17 Modafinil [Provigil] 200 mg PO DAILYP PRN 07/27/17 Morphine Sulfate 30 mg PO BID 07/27/17 Tramadol HCl [Ultram 50 mg Tablet] 50 mg PO DAILYP PRN 07/27/17 Meclizine HCl [Antivert 12.5 mg Tablet] 12.5 mg PO Q8A #60 tablet 07/28/17 Allergies/Adverse Reactions: No Known Allergies Allergy (Verified 08/18/17 18:51) Review of Systems ROS unobtainable: Due to mental status Physical Exam Vital Signs: Temp Pulse Resp BP Pulse Ox 96.7 F L 101 H 13 99/48 L 96 08/19/17 00:09 08/18/17 19:01 08/19/17 05:01 08/19/17 05:01 08/19/17 05:01 General appearance: PRESENT: hard of hearing, severe distress. ABSENT: no acute distress, cooperative Head exam: PRESENT: atraumatic, normocephalic Eye exam: PRESENT: conjunctiva pale. ABSENT: EOMI, nystagmus, PERRLA Ear exam: PRESENT: normal external ear exam Mouth exam: PRESENT: dry mucosa. ABSENT: laceration, moist, neck supple Neck exam: ABSENT: carotid bruit, full ROM, JVD, lymphadenopathy Respiratory exam: PRESENT: accessory muscle use, crackles, decreased breath sounds, prolonged expiratory phas. ABSENT: chest wall tenderness, clear to auscultation ronnie Cardiovascular exam: PRESENT: RRR, tachycardia. ABSENT: clicks, diastolic murmur, gallop, irregular rhythm Pulses: PRESENT: +1 pedal pulses bilateral Vascular exam: PRESENT: normal capillary refill GI/Abdominal exam: PRESENT: ascites, firm, hypoactive bowel sounds. ABSENT: distended, guarding, mass, organolmegaly, rebound, tenderness Rectal exam: PRESENT: deferred Extremities exam: PRESENT: full ROM. ABSENT: calf tenderness, clubbing, pedal edema Neurological exam: PRESENT: altered. ABSENT: CN II-XII grossly intact Skin exam: PRESENT: dry, intact, warm. ABSENT: cyanosis, rash Results Impressions: Chest X-Ray 08/18/17 19:33 IMPRESSION: NO ACUTE RADIOGRAPHIC FINDING IN THE CHEST. Head CT 08/18/17 19:34 IMPRESSION: No acute intracranial abnormality is identified. Assessment & Plan - Diagnosis (1) Comfort measures only status Is this a current diagnosis for this admission?: Yes Plan: Comfort measures order set initiated. Anticipate shortly (2) Pancreatic cancer metastasized to liver Is this a current diagnosis for this admission?: Yes Plan: Terminal stage of pancreatic cancer with metastasis. Failing chemotherapy. - Time Time Spent: 30 to 50 Minutes - Inpatient Certification Medical Necessity: Need Close Monitoring Due to Risk of Patient Decompensation
[2017-08-19] MEDS: HYDROMORPHONE HCL INJ/PF 2 MG/ML AMPULE IV PRN ×3 (06:29→17:17)
--- NOTE | 2017-08-19 08:16 | PDOC CONSULTATION ---
Consultation Consult Date: 08/19/17 Consult reason:: Hemoatology/Oncology Consultation is requested for patient with metastatic pancreatic cancer History of Present Illness Admission Date/PCP: 08/19/17 05:35 History of Present Illness: LAURY POLLOCK is a 67 year old female who was diagnosed with pancreatic cancer and metastases to the liver in May 2017. At the time of diagnosis, she had a large tumor burden to the liver with elevated transaminases. She also had abdominal pain. She was started on palliative chemotherapy with Gemzar and Abraxane in hopes that this would improve her symptoms and quality of life. Although she has remained relatively stable on this chemotherapy, her cancer has continued to progress. She has been having increased difficulty eating and increased ascites and edema. She presented to the ED with decreased level of consciousness, confusion, and difficulty breathing. Past Medical History Cardiac Medical History: Reports: Hyperlipidema, Hypertension Denies: Coronary Artery Disease, Myocardial Infarction Pulmonary Medical History: Denies: Asthma, Bronchitis, Chronic Obstructive Pulmonary Disease (COPD), Pneumonia Neurological Medical History: Denies: Seizures Endocrine Medical History: Reports: Diabetes Mellitus Type 2 Malignancy Medical History: Reports: Liver Cancer, Pancreatic Cancer - See HPI. Musculoskeltal Medical History: Reports: Arthritis - GENERALIZED Hematology: Denies: Anemia Past Surgical History Past Surgical History: Reports: Cardiac Catheterization, Cholecystectomy, Orthopedic Surgery - right foot, hammer toe Social History Occupation: She worked at [employer]. She has no children. She is with Dogs and cats at home. Lives with: Spouse/Significant other Smoking Status: Former Smoker Frequency of Alcohol Use: None Hx Recreational Drug Use: No Hx Prescription Drug Abuse: No - Advance Directive Resuscitation Status: Do Not Resuscitate Family History Family History: CVA - Father 80 years old Parental Family History Reviewed: Yes - Father of stroke. Children Family History Reviewed: NA Sibling(s) Family History Reviewed.: No Medication/Allergy Home Medications: Brimonidine Tartrate/Timolol [Combigan 0.2%-0.5% Eye Drops] 5 ml OU DAILY Diltiazem HCl [Diltiazem ER] 180 mg PO DAILY 07/27/17 Losartan Potassium [Cozaar 25 mg Tablet] 25 mg PO DAILY 07/27/17 Metformin HCl [Glucophage] 1,000 mg PO DAILY 07/27/17 Modafinil [Provigil] 200 mg PO DAILYP PRN 07/27/17 Morphine Sulfate 30 mg PO BID 07/27/17 Tramadol HCl [Ultram 50 mg Tablet] 50 mg PO DAILYP PRN 07/27/17 Meclizine HCl [Antivert 12.5 mg Tablet] 12.5 mg PO Q8A #60 tablet 07/28/17 Allergies/Adverse Reactions: No Known Allergies Allergy (Verified 08/18/17 18:51) Review of Systems ROS unobtainable: Due to mental status Physical Exam Vital Signs: Temp Pulse Resp BP Pulse Ox 96.7 F L 101 H 18 90/60 L 93 08/19/17 00:09 08/18/17 19:01 08/19/17 07:01 08/19/17 07:01 08/19/17 07:01 Exam: 67 year old female. She is unresponsive and has course "rattled" breathing. Head exam: PRESENT: atraumatic Mouth exam: PRESENT: moist Neck exam: ABSENT: lymphadenopathy Respiratory exam: PRESENT: other - Rattles. Scopolomine patch in place. Cardiovascular exam: PRESENT: other - Unable to hear heart sounds due to breath sounds. Pulses: PRESENT: normal dorsalis pedis pul Vascular exam: ABSENT: pallor GI/Abdominal exam: PRESENT: soft. ABSENT: tenderness Extremities exam: PRESENT: +2 edema - All 4 extremities. Neurological exam: ABSENT: alert, awake Psychiatric exam: ABSENT: appropriate affect Skin exam: PRESENT: pallor, other - Ashen color Results Impressions: Chest X-Ray 08/18/17 19:33 IMPRESSION: NO ACUTE RADIOGRAPHIC FINDING IN THE CHEST. Head CT 08/18/17 19:34 IMPRESSION: No acute intracranial abnormality is identified. Assessment & Plan - Diagnosis (1) Pancreatic cancer metastasized to liver Is this a current diagnosis for this admission?: Yes Plan: Sadly, her cancer has continued to progress, despite treatment. Family has requested no further aggressive care. SHe is a DNR with comfort measures only. (2) Acute renal failure Qualifiers: Acute renal failure type: unspecified Qualified Code(s): N17.9 - Acute kidney failure, unspecified Is this a current diagnosis for this admission?: Yes Plan: This is a new finding. Again, Family has requested Comfort measures only. No IV fluids. - Plan Summary Plan Summary: Patient is actively dying. I will discuss with her , as to his wishes for continued care in the hospital vs. Home with Hospice. I believe either option is reasonable. I will continue to follow.
[2017-08-19] MEDS: MORPHINE SULFATE 10 MG/ML INJ IV PRN ×6 (11:54→22:13)
[2017-08-19] MEDS ORDERED: GLYCOPYRROLATE INJ 0.4 MG/2 ML VIAL IV ONE (12:00)
[2017-08-19 13:59] LABS: PATH REVIEW PATHOLOGIST REVIEWED
[2017-08-19] MEDS ORDERED: IPRATROPIUM BROMIDE 0.02% NEB 0.5 MG/2.5 ML AMPUL NEB PRN (14:27)
[2017-08-19] MEDS: ATROPINE SULFATE 1% OPH SOLN 5 ML BOTTLE SL SCH ×2 (17:11→22:18)
[2017-08-19] MEDS ORDERED: GLYCOPYRROLATE INJ 0.4 MG/2 ML VIAL IV SCH (18:00)
[2017-08-19 20:13] VITALS: BP 92/44
--- NOTE | 2017-08-20 07:50 | Death Summary ---
Summary Date : 08/20/17 Time of :: 01:20 Autopsy: No Resuscitation Status: Do Not Resuscitate - Final Diagnosis (1) Pancreatic cancer metastasized to liver Is this a current diagnosis for this admission?: Yes (2) Respiratory failure Is this a current diagnosis for this admission?: Yes Hospital Course:: LAURY POLLOCK is a 67 year old female with history of end-stage pancreatic cancer with metastasis to the liver and lungs. She was undergoing palliative chemotherapy under the care of her oncologist, Dr. Paulino. The patient presented to the emergency department with several days of altered mental status and shortness of breath. The patient's oncologist contacted the hospitalist group and recommended hospice and comfort measures. Upon assessment, the patient was nonverbal, did not open her eyes to stimulation, and was found to be profoundly encephalopathic. She was tachypnic with wet breath sounds. The patient's agreed to comfort measures only. She was started on fentanyl, morphine , scopolamine, glycopyrrolate, and atropine drops. Within 36 hours of admission, the patient had succumb to her metastatic disease. She on 08/20/2017 at 0120. Please refer to the chart for further details.
== END 2017-08-20 03:45 | disposition left against medical advice (07) | DRG 435 ==
LOC: ER 18:51 → EH 08-19 05:35 → 3S 08-19 11:27
PROVIDERS: ADMIT Internal Medicine; ATTEND Internal Medicine
PROC: 5A09357 Assistance with Respiratory Ventilation, Less than 24 Consecutive Hours, Continuous Positive Airway Pressure (ICD-10-PCS; principal; 2017-08-18)
PROC: 3E0F73Z Introduction of Anti-inflammatory into Respiratory Tract, Via Natural or Artificial Opening (ICD-10-PCS; 2017-08-19)
DX: C25.9 Malignant neoplasm of pancreas, unspecified (principal); J96.00 Acute respiratory failure, unspecified whether with hypoxia or hypercapnia; C78.7 Secondary malignant neoplasm of liver and intrahepatic bile duct; C78.02 Secondary malignant neoplasm of left lung; C78.01 Secondary malignant neoplasm of right lung; N17.9 Acute kidney failure, unspecified; E87.2 Acidosis; Z51.5 Encounter for palliative care; Z66 Do not resuscitate; E78.00 Pure hypercholesterolemia, unspecified; I10 Essential (primary) hypertension; E11.9 Type 2 diabetes mellitus without complications; M15.9 Polyosteoarthritis, unspecified; D64.9 Anemia, unspecified; E87.5 Hyperkalemia; Z90.49 Acquired absence of other specified parts of digestive tract; Z87.891 Personal history of nicotine dependence; Z82.3 Family history of stroke
CPT/HCPCS: 36415; 70450; 71045; 80053; 81001; 82550; 82553; 82803; 84484; 85025; 86850; 86900; 86901; 87040; 93005; 93010; 94660; 96361; 96374; 96375; 96376; 99285; J0461; J0610; J1170; J1815; J2060; J2270; J3010; J3490; J7030